=== PATIENT | male | born 1945 | race Native Hawaiian/Other Pacific Islander ===

== ENCOUNTER → 2017-03-16 | Outpatient (CLI) | payer MEDICARE, BC | LOC: LAB.WCP 06:57 | PROVIDERS: ATTEND Family Medicine | DX: R78.81 Bacteremia (principal) | CPT/HCPCS: 36415; 87040 ==

== ENCOUNTER 2017-06-04 06:59 | Outpatient (CLI) | payer MEDICARE, BC ==
[2017-06-04 19:42] LABS: BASOPHILS # (AUTO) 0.1 10^3/uL (0.0-0.1); BASOPHILS % (AUTO) 0.6 %; EOSINOPHILS # (AUTO) 0.3 10^3/uL (0.0-0.7); EOSINOPHILS % (AUTO) 3.7 %; HCT - HEMATOCRIT 38.2 % (42.0-52.0); HGB - HEMOGLOBIN 12.1 g/dL (14.0-18.0); LYMPHOCYTES # (AUTO) 1.4 10^3/uL (1.5-3.5); LYMPHOCYTES % (AUTO) 16.2 %; MEAN CORPUSCULAR HGB CONC 31.7 g/dL (32.0-36.0); MEAN CORPUSCULAR VOLUME 85.1 fL (80.0-94.0); MEAN PLATELET VOLUME 7.2 fL (7.4-11.4); MONOCYTES # (AUTO) 0.7 10^3/uL (0.0-1.0); MONOCYTES % (AUTO) 8.8 %; NEUTROPHILS # (AUTO) 5.9 10^3/uL (1.5-6.6); NEUTROPHILS % (AUTO) 70.7 %; RED BLOOD COUNT 4.49 10^6/uL (4.70-6.10); RED CELL DISTRIBUTION WIDTH 18.5 % (12.0-15.0); UNCORRECTED WHITE BLOOD COUNT 8.4 x10^3/uL; WHITE BLOOD COUNT 8.4 x10^3/uL (4.8-10.8)
[2017-06-04 20:15] LABS: BUN - BLOOD UREA NITROGEN 15 mg/dL (6-20); CALCIUM 8.9 mg/dL (8.5-10.3); CARBON DIOXIDE - CO2 27 mmol/L (21-32); CHLORIDE 101 mmol/L (101-111); CHOL/HDL RATIO 1.9 (<5.0); CHOLESTEROL 132 mg/dL; CREATININE 1.1 mg/dL (0.6-1.2); GFR - MDRD 66 (>89); GLUCOSE 100 mg/dL (70-100); HDL CHOLESTEROL 71 mg/dL; LDL/HDL RATIO 0.6 (<3.6); SODIUM 139 mmol/L (135-145); TOTAL PROTEIN 8.3 g/dL (6.7-8.2); TRIGLYCERIDES 93 mg/dL; VLDL CHOLESTEROL 19 mg/dL
== END 2017-06-04 07:00 | disposition home or self-care (01) ==
LOC: LAB.WCP 06:59
PROVIDERS: ATTEND Family Medicine
DX: I10 Essential (primary) hypertension (principal); R73.01 Impaired fasting glucose; E88.9 Metabolic disorder, unspecified; Z79.899 Other long term (current) drug therapy
CPT/HCPCS: 36415; 80053; 80061; 85025

== ENCOUNTER 2017-12-10 15:10 | Outpatient (CLI) | payer MEDICARE, BC | END 2017-12-10 15:11 | disposition short-term general hospital (02) | LOC: EMS 15:10 | PROVIDERS: ATTEND Surgery | DX: R55 Syncope and collapse (principal) | CPT/HCPCS: A0425; A0427; A0888 ==

== ENCOUNTER 2017-12-27 14:04 | Outpatient (CLI) | payer MEDICARE, BC ==
[2017-12-27 14:49] LABS: BASOPHILS # (AUTO) 0.1 10^3/uL (0.0-0.1); BASOPHILS % (AUTO) 0.8 %; EOSINOPHILS # (AUTO) 0.3 10^3/uL (0.0-0.7); EOSINOPHILS % (AUTO) 4.3 %; HGB - HEMOGLOBIN 11.7 g/dL (14.0-18.0); LYMPHOCYTES # (AUTO) 1.1 10^3/uL (1.5-3.5); LYMPHOCYTES % (AUTO) 16.5 %; MEAN CORPUSCULAR HEMOGLOBIN 28.1 pg (27.0-31.0); MEAN CORPUSCULAR HGB CONC 32.8 g/dL (32.0-36.0); MEAN CORPUSCULAR VOLUME 85.6 fL (80.0-94.0); MEAN PLATELET VOLUME 7.2 fL (7.4-11.4); MONOCYTES # (AUTO) 0.6 10^3/uL (0.0-1.0); NEUTROPHILS # (AUTO) 4.7 10^3/uL (1.5-6.6); NEUTROPHILS % (AUTO) 69.4 %; PLT - PLATELET COUNT 286 10^3/uL (130-450); RED BLOOD COUNT 4.18 10^6/uL (4.70-6.10); WHITE BLOOD COUNT 6.7 x10^3/uL (4.8-10.8)
[2017-12-27 15:01] LABS: ALBUMIN 3.7 g/dL (3.2-5.5); ALBUMIN/GLOBULIN RATIO 0.9 (1.0-2.2); BILIRUBIN,TOTAL 0.9 mg/dL (0.2-1.0); CALCIUM 8.6 mg/dL (8.5-10.3); CREATININE 1.3 mg/dL (0.6-1.2); TOTAL PROTEIN 7.8 g/dL (6.7-8.2)
== END 2017-12-27 14:05 | disposition home or self-care (01) ==
LOC: LAB 14:04
PROVIDERS: ATTEND Internal Medicine Gastroenterology
DX: Z01.818 Encounter for other preprocedural examination (principal); I50.9 Heart failure, unspecified; Z12.11 Encounter for screening for malignant neoplasm of colon
CPT/HCPCS: 36415; 80053; 85025; 93005

== ENCOUNTER 2018-01-05 08:00 | Outpatient (CLI) | payer MEDICARE, BC ==
[2018-01-05 18:56] LABS: PT - PROTHROMBIN TIME 21.8 secs (9.9-12.6)
== END 2018-01-05 08:01 | disposition home or self-care (01) ==
LOC: LAB.WCP 08:00
PROVIDERS: ATTEND Internal Medicine Gastroenterology
DX: Z12.11 Encounter for screening for malignant neoplasm of colon (principal)
CPT/HCPCS: 36415; 85610

== ENCOUNTER 2018-01-06 13:18 | Day surgery (SDC) | payer MEDICARE, BC ==
[2018-01-06] MEDS ORDERED: LACTATED RINGERS 1,000 ML IV ONE (14:03)
[2018-01-06] MEDS ORDERED: PROPOFOL 200 MG/20 ML VIAL IVP ONE (15:07)
[2018-01-06] MEDS ORDERED: LIDOCAINE-MPF 2% 5 ML VIAL IM ONE (15:07)
[2018-01-06 16:04] VITALS: BP 110/72
== END 2018-01-06 13:19 | disposition home or self-care (01) ==
LOC: SDS 13:18
PROVIDERS: ATTEND Internal Medicine Gastroenterology
PROC: 0DBN8ZX Excision of Sigmoid Colon, Via Natural or Artificial Opening Endoscopic, Diagnostic (ICD-10-PCS; 2018-01-06)
PROC: 0DBP8ZX Excision of Rectum, Via Natural or Artificial Opening Endoscopic, Diagnostic (ICD-10-PCS; 2018-01-06)
PROC: 0DBK8ZX Excision of Ascending Colon, Via Natural or Artificial Opening Endoscopic, Diagnostic (ICD-10-PCS; 2018-01-06)
PROC: 0DBM8ZX Excision of Descending Colon, Via Natural or Artificial Opening Endoscopic, Diagnostic (ICD-10-PCS; principal; 2018-01-06 14:30)
DX: Z12.11 Encounter for screening for malignant neoplasm of colon (principal); D12.2 Benign neoplasm of ascending colon; D12.5 Benign neoplasm of sigmoid colon; K62.1 Rectal polyp; K63.5 Polyp of colon; I11.0 Hypertensive heart disease with heart failure; I50.9 Heart failure, unspecified; Z95.2 Presence of prosthetic heart valve; Z79.01 Long term (current) use of anticoagulants; Z79.82 Long term (current) use of aspirin; Z87.891 Personal history of nicotine dependence
CPT/HCPCS: 45380; 45385; J7120

== ENCOUNTER 2018-01-13 18:48 | Outpatient (CLI) | payer MEDICARE, BC | END 2018-01-13 18:49 | disposition critical access hospital (66) | LOC: EMS 18:48 | PROVIDERS: ATTEND Surgery | DX: R53.1 Weakness (principal); K92.1 Melena; Z79.01 Long term (current) use of anticoagulants | CPT/HCPCS: A0425; A0427 ==

== ENCOUNTER 2018-01-13 19:05 | Inpatient (IN) | payer MEDICARE, BC ==
[2018-01-13] MEDS ORDERED: SODIUM CHLORIDE 0.9% 1,000 ML IV ONE (19:11)
--- NOTE | 2018-01-13 19:14 | ED Physician Documentation ---
PD HPI GI BLEED - Stated complaint Stated Complaint: SYNCOPE - History obtained from History obtained from: Patient, EMS - History of Present Illness Timing - onset: Today (This is a 72-year-old gentleman with atrial fibrillation on warfarin. 6 days ago he had a colonoscopy with several polypectomies. He did pause his Coumadin for a few days. Procedurally. Today he started having syncopal episodes and feeling weak especially when upright and had 2 syncopal episodes total with several episodes of dark blood and clots per rectum. He denies any abdominal pain. He was orthostatic for the paramedics although they could not complete the orthostatics due to symptomatology. He denies chest pain , trouble breathing, or dizziness when he is supine.) Review of Systems Ten Systems: 10 systems reviewed and negative Constitutional: denies: Fever, Chills Cardiac: denies: Chest pain / pressure, Palpitations Respiratory: denies: Dyspnea, Cough GI: denies: Abdominal Pain, Nausea, Vomiting, Constipation, Diarrhea PD PAST MEDICAL HISTORY - Past Medical History Past Medical History: Yes Cardiovascular: Atrial fibrillation - Present Medications Home Medications: Ambulatory Orders Medication Instructions Recorded Confirmed Acetaminophen/Diphenhydramine 2 each PO DAILY PM 12/29/17 01/06/18 [Tylenol Pm Ex-Strength Caplet] Aspirin 81 mg PO DAILY 12/29/17 01/06/18 Atorvastatin Calcium 80 mg PO DAILY 12/29/17 01/06/18 Docusate Sodium 100 mg PO BID 12/29/17 01/06/18 Escitalopram [Lexapro] 10 mg PO DAILY 12/29/17 01/06/18 Famotidine 20 mg PO BID 12/29/17 01/06/18 Ferrous Sulfate 324 mg PO TID 12/29/17 01/06/18 Furosemide [Lasix] 20 mg PO BID 12/29/17 01/06/18 Metoprolol Succinate 50 mg PO BID 12/29/17 01/06/18 Multivit-Min/Folic/Vit K/Lycop 1 each PO DAILY 12/29/17 01/06/18 [Men's Multivitamin Caplet] Potassium Chloride 20 meq PO DAILY 12/29/17 01/06/18 Ubidecarenone/Vit E Acetate [Co 1 each PO DAILY 12/29/17 01/06/18 Q-10 100 mg Softgel] Warfarin [Coumadin] 0.5 tab PO .QMON-SAT 12/29/17 01/06/18 Warfarin [Coumadin] 2.5 mg PO .QSUNDAY 12/29/17 01/06/18 oxyCODONE [Roxicodone] 5 mg PO TID 12/29/17 01/06/18 - Allergies Allergies/Adverse Reactions: Allergies Allergy/AdvReac Type Severity Reaction Status Date / Time cyclobenzaprine Allergy Rash Verified 01/06/18 13:47 [From Flexeril] - Living Situation Living Situation: reports: With spouse/s.o. - Social History Does the pt have substance abuse?: No - Family History Family history: reports: Non contributory PD ED PE NORMAL - Vitals Vital signs reviewed: Yes - General General: Alert and oriented X 3, No acute distress - HEENT HEENT: PERRL, EOMI - Neck Neck: Supple, no meningeal sign, No bony TTP - Cardiac Cardiac: Other (Irregularly irregular without murmur) - Respiratory Respiratory: No respiratory distress, Clear bilaterally - Abdomen Abdomen: Normal bowel sounds, Soft, Non tender - Derm Derm: Normal color, Warm and dry - Extremities Extremities: No edema, No calf tenderness / cord - Neuro Neuro: Alert and oriented X 3, Normal speech - Psych Psych: Normal mood, Normal affect Results - Vitals Vitals: Vital Signs - 24 hr 01/13/18 01/13/18 19:08 19:51 Temperature 36.4 C L Heart Rate 81 78 Respiratory 18 11 L Rate Blood Pressure 97/57 L 108/85 H O2 Saturation 97 97 Oxygen O2 Source Room air - Labs Labs: Laboratory Tests 01/13/18 01/13/18 01/13/18 19:17 19:17 19:17 WBC 10.4 RBC 3.54 L Hgb 9.8 L Hct 30.8 L MCV 87.1 MCH 27.8 MCHC 31.9 L RDW 16.4 H Plt Count 221 MPV 6.7 L Neut # 8.6 H Lymph # 1.0 L [place] # 0.7 Eos # 0.0 Baso # 0.0 Absolute Nucleated RBC 0.00 Nucleated RBC % 0.0 PT 18.7 H INR 1.7 H Sodium 137 Potassium 4.4 Chloride 104 Carbon Dioxide 25 Anion Gap 8.0 BUN 29 H Creatinine 1.6 H Estimated GFR (MDRD) 43 L Glucose 119 H Calcium 8.1 L Total Bilirubin 0.8 AST 51 H ALT 45 Alkaline Phosphatase 213 H Total Protein 6.9 Albumin 3.5 Globulin 3.4 Albumin/Globulin Ratio 1.0 Lipase 32 PD MEDICAL DECISION MAKING - ED course ED course: 72-year-old gentleman on warfarin for atrial fibrillation presents 6 days out from a colonoscopy with multiple polypectomies with lower GI bleeding and 2 episodes of syncope and orthostatic in the field with a 2 point drop in his H&H since the last value about 2 weeks ago. I spoke with his surgeon, Dr. Elias Elaine at 7:58 PM who will follow along and recommends observation under the hospitalist service for serial H&H. I spoke with Dr. Leon for observation at 8:05 PM. Departure - Departure Disposition: ED Place in Observation Clinical Impression: Lower GI bleed, Syncope and collapse Atrial fibrillation Qualifiers: Atrial fibrillation type: chronic Qualified Code(s): I48.2 - Chronic atrial fibrillation Condition: Serious
[2018-01-13 19:30] LABS: BASOPHILS % (AUTO) 0.5 %; EOSINOPHILS % (AUTO) 0.4 %; HGB - HEMOGLOBIN 9.8 g/dL (14.0-18.0); LYMPHOCYTES % (AUTO) 9.6 %; MEAN CORPUSCULAR HEMOGLOBIN 27.8 pg (27.0-31.0); MEAN CORPUSCULAR HGB CONC 31.9 g/dL (32.0-36.0); MEAN CORPUSCULAR VOLUME 87.1 fL (80.0-94.0); MEAN PLATELET VOLUME 6.7 fL (7.4-11.4); MONOCYTES # (AUTO) 0.7 10^3/uL (0.0-1.0); NEUTROPHILS # (AUTO) 8.6 10^3/uL (1.5-6.6); NEUTROPHILS % (AUTO) 82.5 %; PLT - PLATELET COUNT 221 10^3/uL (130-450); RED BLOOD COUNT 3.54 10^6/uL (4.70-6.10); RED CELL DISTRIBUTION WIDTH 16.4 % (12.0-15.0); WHITE BLOOD COUNT 10.4 x10^3/uL (4.8-10.8)
[2018-01-13 19:36] LABS: INR 1.7 (0.8-1.2); PT - PROTHROMBIN TIME 18.7 secs (9.9-12.6)
[2018-01-13 19:42] LABS: ALBUMIN 3.5 g/dL (3.2-5.5); BILIRUBIN,TOTAL 0.8 mg/dL (0.2-1.0); CALCIUM 8.1 mg/dL (8.5-10.3); CREATININE 1.6 mg/dL (0.6-1.2); TOTAL PROTEIN 6.9 g/dL (6.7-8.2)
[2018-01-13] MEDS ORDERED: oxyCODONE 5 MG TABLET PO STA (20:06)
[2018-01-13] MEDS ORDERED: PROMETHAZINE 25 MG/1 ML VIAL IM PRN (20:17)
[2018-01-13] MEDS ORDERED: PROCHLORPERAZINE 10 MG/2 ML VIAL IVP PRN (20:17)
[2018-01-13] MEDS ORDERED: ONDANSETRON 4 MG/2 ML VIAL IVP PRN (20:17)
[2018-01-13] MEDS ORDERED: ACETAMINOPHEN 325 MG TABLET PO PRN (20:17)
[2018-01-13] MEDS ORDERED: SODIUM CHLORIDE 0.9% 500 ML IV ONE ×2 (20:17→22:16)
[2018-01-13] MEDS ORDERED: oxyCODONE 5 MG TABLET PO PRN (20:17)
[2018-01-13] MEDS: SODIUM CHLORIDE 0.9% 1,000 ML IV SCH (22:15)
[2018-01-13] MEDS: METOPROLOL SUCCINATE 50 MG TABLET PO SCH (22:15)
--- NOTE | 2018-01-13 22:16 | HISTORY & PHYSICAL EXAMINATION ---
Chief Complaint - Chief Complaint Chief Complaint: Bloody stools History of Present Illness - Admitted From Admitted From:: Emergency Department - History Obtained From Records Reviewed: Yes History obtained from: Patient Exam Limitations: NOne - History of Present Illness HPI Comment/Other: Patient is a 72-year-old gentleman with a past medical history significant for atrial fibrillation on Coumadin, hypertension, mitral valve replacement, borderline diabetes, gout, obesity, depression, chronic back pain status post spinal surgery, mild cognitive impairment, coronary disease status post stent in 2014, and chronic CHF who presented to the emergency department with a chief complaint of bloody stools. The patient states that he underwent a colonoscopy 7 days ago. From our records it appears the patient had sessile polyp ranging between 5-9 mm that was found in the descending colon which was removed by polypectomy, he also had a pedunculated polyp measuring 2 cm in the ascending colon which was also removed by polypectomy, he had a sessile polyps ranging between 3-7 mm in the sigmoid colon which was removed by polypectomy and he had multiple sessile polyps ranging between 5 and 9 mm in the rectum which were removed by polypectomy as well. The pathology on the polyps that were sent for biopsy showed no evidence of malignancy. The patient states that for the procedure he stopped his Coumadin a few days before and this was resumed a day after the procedure. He states that he was in his normal state of health after the procedure and was not having any issues to the week. He states that when he got up this morning he felt very dizzy and fell to the floor. He states he did not lose consciousness but after he fell on the floor he states that he had sustained his pajamas with blood that had come from his rectum. He states that after this he got up and went to the toilet and filled the toilet with bloody stools. He states the stools are bloody but the blood is dark. He states that after this large bloody bowel movement he had no further bloody bowel movements through the day. He does state however he was getting extremely dizzy anytime he would stand. He states that his was out shopping and when she called he did not want to worry her so he told her he was fine. When she did return from shopping he told her what had happened and she immediately called 911. On arrival of EMS the patient was found to be hypotensive and had positive orthostatics. The patient was brought into the emergency department. Patient denies any headaches, blurred vision, runny nose, sore throat, nasal congestion, difficulty swallowing, fevers, chills, chest pain, palpitations, shortness of air, orthopnea, PND, increased lower extremity swelling, abdominal pain, nausea, vomiting, diarrhea, constipation, urinary urgency, urinary frequency, dysuria, joint pain, joint swelling, muscle aches, neck stiffness, recent unintentional weight loss, changes in appetite, skin rashes, hair loss, polydipsia, polyuria, night sweats or any focal neurologic deficits. On presentation to the emergency department the patient was afebrile and was mildly hypotensive with a blood pressure of 97/57 but was not tachycardic and not in any respiratory distress. The patient's lab work revealed that the patient had a hemoglobin of 9.8 which had decreased from 11.7 just 2 weeks earlier. The patient's stool guaiac was positive and his INR was 1.7 on presentation. The patient otherwise had a mildly elevated creatinine of 1.6 from a baseline of 1.1-1.3. The patient's AST and alk phos are slightly elevated but this was near his baseline. The patient did not undergo any imaging in the emergency department physician spoke with the general surgeon quality control systems manager. The general surgeon recommended that the patient be placed in observation and have serial H&H and be monitored for any further bleeding and that he would see the patient in the morning. History - Past Medical History Cardiovascular: reports: Congestive heart failure, Hypertension, High cholesterol, Coronary artery disease, Atrial fibrillation, Valve disorder ( Mitral valve replacement), Other (Obesity) Neuro: reports: Other (Mild cognitive impairment) Endocrine/Autoimmune: reports: Type 2 diabetes (Borderline) Psych: reports: Depression - Past Surgical History General: reports: Cholecystectomy, Colonoscopy - Family & Social History Family History: Mother: , Alcoholism, Father: , Renal Disease/ Failure Living arrangement: At home Living Situation: With spouse/s.o. Social History Notes: Patient lives in [place] with his . They have been for 42 years and had 5 kids together. 3 girls and 2 boys one of the patient's sons is . [place] 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 He quit smoking about 42 years ago and smoked about a pack a day for 10 years. He was previously a heavy drinker but has quit and does not currently drink alcohol. He denies any illicit drug use. - POLST Patient has POLST: No POLST Status: Full Code Meds/Allgy - Home Medications Home Medications: Ambulatory Orders Medication Instructions Recorded Confirmed Acetaminophen/Diphenhydramine 2 each PO DAILY PM 12/29/17 01/06/18 [Tylenol Pm Ex-Strength Caplet] Aspirin 81 mg PO DAILY 12/29/17 01/06/18 Atorvastatin Calcium 80 mg PO DAILY 12/29/17 01/06/18 Docusate Sodium 100 mg PO BID 12/29/17 01/06/18 Escitalopram [Lexapro] 10 mg PO DAILY 12/29/17 01/06/18 Famotidine 20 mg PO BID 12/29/17 01/06/18 Ferrous Sulfate 324 mg PO TID 12/29/17 01/06/18 Furosemide [Lasix] 20 mg PO BID 12/29/17 01/06/18 Metoprolol Succinate 50 mg PO BID 12/29/17 01/06/18 Multivit-Min/Folic/Vit K/Lycop 1 each PO DAILY 12/29/17 01/06/18 [Men's Multivitamin Caplet] Potassium Chloride 20 meq PO DAILY 12/29/17 01/06/18 Ubidecarenone/Vit E Acetate [Co 1 each PO DAILY 12/29/17 01/06/18 Q-10 100 mg Softgel] Warfarin [Coumadin] 0.5 tab PO .QMON-SAT 12/29/17 01/06/18 Warfarin [Coumadin] 2.5 mg PO .QSUNDAY 12/29/17 01/06/18 oxyCODONE [Roxicodone] 5 mg PO TID 12/29/17 01/06/18 - Allergies Allergies/Adverse Reactions: Allergies Allergy/AdvReac Type Severity Reaction Status Date / Time cyclobenzaprine Allergy Rash Verified 01/06/18 13:47 [From Flexeril] Review of Systems - Other Findings Other Findings: A comprehensive review of systems was performed the pertinent positives and negatives are stated above in the HPI and the remainder of the review of systems is negative. Exam - Vital Signs Reviewed Vital Signs: Yes Vital Signs: Vital Signs x48h Temp Pulse Pulse Resp BP BP Pulse Ox 01/13/18 21:20 36.9 C 80 16 113/65 98 01/13/18 20:30 69 12 109/69 98 - Physical Exam General Appearance: positive: No acute distress, Alert, Other (Obese) Eyes Bilateral: positive: Normal inspection, PERRL, EOMI, No lid inflammation, No scleral icterus, Other (Mild conjunctival pallor) ENT: positive: ENT inspection nml, Pharynx nml, Dry mucous membranes. negative : Purulent nasal drainage, Pharyngeal erythema, Oral lesions Neck: positive: Nml inspection, Thyroid nml, No JVD, Trachea midline. negative : Lymphadenopathy (R), Lymphadenopathy (L), Carotid bruit, Tracheal deviation Respiratory: positive: Chest non-tender, No respiratory distress, Breath sounds nml. negative: Wheezes, Rales, Rhonchi Cardiovascular: positive: No murmur, No gallop, Irregularly irregular Peripheral Pulses: positive: 2+ Abdomen: positive: Non-tender, No organomegaly, Nml bowel sounds, No distention. negative: Guarding, Rebound, Hepatomegaly Back: positive: Nml inspection. negative: CVA tenderness (R), CVA tenderness (L ) Skin: positive: No rash, Warm, Dry, Pallor. negative: Cyanosis Extremities: positive: Non-tender, Full ROM, Nml appearance, No pedal edema Neurologic/Psychiatric: positive: Oriented x3, CN's nml (2-12), Motor nml, Sensation nml, Mood/affect nml Conclusion/Plan - Problem List (1) Lower GI bleed Conclusion/Plan: Patient presents to the emergency department with bloody stools. Patient had a episode of dizziness and fell then had several episodes of blood in his stools. The patient continued to be dizzy throughout the day and was hypotensive on arrival of EMS. The patient's hemoglobin dropped from 11.72 weeks ago down to 9.8 on presentation. The patient did have a recent colonoscopy with multiple polypectomies one week ago. He had his Coumadin held but that was restarted after the procedure. It is likely the patient is bleeding from the polypectomy sites secondary to his Coumadin. Plan: We will monitor the patient's H&H every 6 hours We will monitor for any further bloody bowel movements We will hold the patient's Coumadin And aspirin Patient will be given IV fluids given his low blood pressure Patient will be given packed RBCs if hemoglobin falls below 7 Surgery will be consulted We will start the patient on IV Protonix until we are sure this is just a lower GI bleed. (2) Atrial fibrillation Conclusion/Plan: Patient has chronic atrial fibrillation. The patient is on Coumadin. The patient's chads 2 score is 3. The patient is also on metoprolol for rate control. The patient's rate appears to be controlled on presentation. Given the patient's ongoing GI bleed his Coumadin will be held. We will need to continue to monitor for any further bleeding and will need to hold off on restarting Coumadin for a few days. Qualifiers: Atrial fibrillation type: chronic Qualified Code(s): I48.2 - Chronic atrial fibrillation (3) LESLEY (acute kidney injury) Conclusion/Plan: The patient's creatinine is elevated at 1.6 on presentation his normal baseline is between 1.1 and 1.3. Likely the patient has prerenal azotemia given that he has had acute blood loss which likely led to prerenal acute kidney injury. Patient will be given IV fluids and will monitor the patient's creatinine If creatinine does not improve we will consider an retroperitoneal ultrasound Avoid nephrotoxic agents. (4) Hypertension Conclusion/Plan: Patient has history of hypertension but currently on presentation the patient is borderline hypotensive. We will hold the patient's antihypertensive medications until blood pressure is improved. In the setting of this GI bleed we do not want to cause any further hypotension. Qualifiers: Hypertension type: essential hypertension Qualified Code(s): I10 - Essential (primary) hypertension (5) Depression Conclusion/Plan: Patient has history of depression and does take Lexapro which will be continued while he is hospitalized. The patient is otherwise stable and appears to have a normal mood. Qualifiers: Depression Type: unspecified Qualified Code(s): F32.9 - Major depressive disorder, single episode, unspecified (6) Hyperlipidemia Conclusion/Plan: Patient does have a history of hyperlipidemia and does take a statin at home we will continue him on statin while he is hospitalized. Qualifiers: Hyperlipidemia type: unspecified Qualified Code(s): E78.5 - Hyperlipidemia , unspecified (7) Chronic pain Conclusion/Plan: The patient does have a history of chronic back pain and does use oxycodone at home 3 times a day. While he is hospitalized here we will place him on oxycodone as needed. Currently the pain appears to be controlled. Qualifiers: Chronic pain type: chronic pain syndrome Qualified Code(s): G89.4 - Chronic pain syndrome - Lab Results Lab results reviewed: Yes Fish Bones: 01/14/18 00:40 01/13/18 19:17 Other Lab Results: Laboratory Results WBC 9.0 x10^3/uL (4.8-10.8) 01/14/18 00:40 RBC 3.28 10^6/uL (4.70-6.10) L 01/14/18 00:40 Hgb 9.2 g/dL (14.0-18.0) L 01/14/18 00:40 Hct 28.5 % (42.0-52.0) L 01/14/18 00:40 MCV 86.9 fL (80.0-94.0) 01/14/18 00:40 MCH 28.2 pg (27.0-31.0) 01/14/18 00:40 MCHC 32.5 g/dL (32.0-36.0) 01/14/18 00:40 RDW 16.3 % (12.0-15.0) H 01/14/18 00:40 Plt Count 202 10^3/uL (130-450) 01/14/18 00:40 MPV 6.9 fL (7.4-11.4) L 01/14/18 00:40 Neut # 6.5 10^3/uL (1.5-6.6) 01/14/18 00:40 Lymph # 1.5 10^3/uL (1.5-3.5) 01/14/18 00:40 [place] # 0.7 10^3/uL (0.0-1.0) 01/14/18 00:40 Eos # 0.2 10^3/uL (0.0-0.7) 01/14/18 00:40 Baso # 0.1 10^3/uL (0.0-0.1) 01/14/18 00:40 Absolute Nucleated RBC 0.00 x10^3/uL 01/14/18 00:40 Nucleated RBC % 0.0 /100WBC 01/14/18 00:40 PT 18.7 secs (9.9-12.6) H 01/13/18 19:17 INR 1.7 (0.8-1.2) H 01/13/18 19:17 Sodium 137 mmol/L (135-145) 01/13/18 19:17 Potassium 4.4 mmol/L (3.5-5.0) 01/13/18 19:17 Chloride 104 mmol/L (101-111) 01/13/18 19:17 Carbon Dioxide 25 mmol/L (21-32) 01/13/18 19:17 Anion Gap 8.0 (6-13) 01/13/18 19:17 BUN 29 mg/dL (6-20) H 01/13/18 19:17 Creatinine 1.6 mg/dL (0.6-1.2) H 01/13/18 19:17 Estimated GFR (MDRD) 43 (>89) L 01/13/18 19:17 Glucose 119 mg/dL (70-100) H 01/13/18 19:17 Calcium 8.1 mg/dL (8.5-10.3) L 01/13/18 19:17 Total Bilirubin 0.8 mg/dL (0.2-1.0) 01/13/18 19:17 AST 51 IU/L (10-42) H 01/13/18 19:17 ALT 45 IU/L (10-60) 01/13/18 19:17 Alkaline Phosphatase 213 IU/L (42-121) H 01/13/18 19:17 Total Protein 6.9 g/dL (6.7-8.2) 01/13/18 19:17 Albumin 3.5 g/dL (3.2-5.5) 01/13/18 19:17 Globulin 3.4 g/dL (2.1-4.2) 01/13/18 19:17 Albumin/Globulin Ratio 1.0 (1.0-2.2) 01/13/18 19:17 Lipase 32 U/L (22-51) 01/13/18 19:17 Blood Type O POSITIVE 01/13/18 19:17 Antibody Screen NEGATIVE 01/13/18 19:17 Core Measures - Anticipated LOS I expect patient to be DC'd or transferred within 96 hours.: Yes - DVT/VTE - Prophylaxis VTE/DVT Device ordered at admit?: Yes
[2018-01-13] MEDS: PANTOPRAZOLE 40 MG VIAL IVP SCH (22:34)
[2018-01-13] MEDS: FERROUS SULFATE 325 MG TABLET PO SCH (22:34)
[2018-01-13] MEDS: SODIUM CHLORIDE FLUSH 0.9% 10 ML SYRINGE IVP PRN (22:35)
[2018-01-13] MEDS: oxyCODONE 5 MG TABLET PO PRN (22:37)
[2018-01-14 00:55] LABS: BASOPHILS # (AUTO) 0.1 10^3/uL (0.0-0.1); BASOPHILS % (AUTO) 0.6 %; EOSINOPHILS # (AUTO) 0.2 10^3/uL (0.0-0.7); EOSINOPHILS % (AUTO) 1.8 %; HGB - HEMOGLOBIN 9.2 g/dL (14.0-18.0); LYMPHOCYTES # (AUTO) 1.5 10^3/uL (1.5-3.5); LYMPHOCYTES % (AUTO) 16.8 %; MEAN CORPUSCULAR HEMOGLOBIN 28.2 pg (27.0-31.0); MEAN CORPUSCULAR HGB CONC 32.5 g/dL (32.0-36.0); MEAN CORPUSCULAR VOLUME 86.9 fL (80.0-94.0); MEAN PLATELET VOLUME 6.9 fL (7.4-11.4); MONOCYTES # (AUTO) 0.7 10^3/uL (0.0-1.0); MONOCYTES % (AUTO) 8.2 %; NEUTROPHILS # (AUTO) 6.5 10^3/uL (1.5-6.6); NEUTROPHILS % (AUTO) 72.6 %; PLT - PLATELET COUNT 202 10^3/uL (130-450); RED BLOOD COUNT 3.28 10^6/uL (4.70-6.10); RED CELL DISTRIBUTION WIDTH 16.3 % (12.0-15.0)
[2018-01-14] MEDS: oxyCODONE 5 MG TABLET PO PRN ×5 (02:28→19:57)
[2018-01-14] MEDS: SODIUM CHLORIDE 0.9% 1,000 ML IV SCH (02:33)
[2018-01-14] MEDS: SODIUM CHLORIDE FLUSH 0.9% 10 ML SYRINGE IVP SCH ×3 (06:11→19:56)
[2018-01-14] MEDS: FERROUS SULFATE 325 MG TABLET PO SCH ×3 (06:12→22:09)
[2018-01-14 06:25] LABS: BASOPHILS % (AUTO) 0.5 %; EOSINOPHILS # (AUTO) 0.3 10^3/uL (0.0-0.7); EOSINOPHILS % (AUTO) 3.6 %; HGB - HEMOGLOBIN 8.7 g/dL (14.0-18.0); LYMPHOCYTES # (AUTO) 1.6 10^3/uL (1.5-3.5); LYMPHOCYTES % (AUTO) 22.1 %; MEAN CORPUSCULAR HEMOGLOBIN 28.1 pg (27.0-31.0); MEAN CORPUSCULAR HGB CONC 32.4 g/dL (32.0-36.0); MEAN CORPUSCULAR VOLUME 86.7 fL (80.0-94.0); MEAN PLATELET VOLUME 7.2 fL (7.4-11.4); MONOCYTES # (AUTO) 0.7 10^3/uL (0.0-1.0); MONOCYTES % (AUTO) 8.9 %; NEUTROPHILS # (AUTO) 4.8 10^3/uL (1.5-6.6); NEUTROPHILS % (AUTO) 64.9 %; PLT - PLATELET COUNT 190 10^3/uL (130-450); RED BLOOD COUNT 3.09 10^6/uL (4.70-6.10); WHITE BLOOD COUNT 7.3 x10^3/uL (4.8-10.8)
[2018-01-14 06:32] LABS: INR 1.6 (0.8-1.2); PT - PROTHROMBIN TIME 17.7 secs (9.9-12.6)
[2018-01-14 06:45] LABS: ALBUMIN 2.9 g/dL (3.2-5.5); ALBUMIN/GLOBULIN RATIO 0.9 (1.0-2.2); BILIRUBIN,TOTAL 1.1 mg/dL (0.2-1.0); CREATININE 1.1 mg/dL (0.6-1.2); TOTAL PROTEIN 6.1 g/dL (6.7-8.2)
[2018-01-14] MEDS: ATORVASTATIN 40 MG TABLET PO SCH (09:29)
[2018-01-14] MEDS: ESCITALOPRAM 10 MG TABLET PO SCH (09:29)
[2018-01-14] MEDS: PANTOPRAZOLE 40 MG VIAL IVP SCH ×2 (09:29→22:09)
[2018-01-14] MEDS: POLYETHYLENE GLYCOL 3350 17 GM PACKET PO SCH (09:34)
[2018-01-14] MEDS: METOPROLOL SUCCINATE 50 MG TABLET PO SCH ×2 (09:34→22:09)
--- NOTE | 2018-01-14 10:52 | CONSULTATION NOTE ---
History of Present Illness - History of Present Illness HPI Comment/Other: This document was created in error. See separate full consultation note by Dr. Jenise Elaine History - Past Medical History Cardiovascular: reports: Congestive heart failure, Hypertension, High cholesterol, Coronary artery disease, Atrial fibrillation, Valve disorder ( Mitral valve replacement), Other (Obesity) Neuro: reports: Other (Mild cognitive impairment) Endocrine/Autoimmune: reports: Type 2 diabetes (Borderline) Psych: reports: Depression - Past Surgical History General: reports: Cholecystectomy, Colonoscopy - Family & Social History Family History: Mother: , Alcoholism, Father: , Renal Disease/ Failure Living arrangement: At home Living Situation: With spouse/s.o. Social History Notes: Patient lives in [place] with his . They have been for 42 years and had 5 kids together. 3 girls and 2 boys one of the patient's sons is . The patient is originally from [place] and moved would [facility] about a year ago with his whose parents live here on the [place]. 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 He quit smoking about 42 years ago and smoked about a pack a day for 10 years. He was previously a heavy drinker but has quit and does not currently drink alcohol. He denies any illicit drug use. - POLST Patient has POLST: No POLST Status: Full Code Meds/Allgy - Home Medications Home Medications: Ambulatory Orders Medication Instructions Recorded Confirmed Acetaminophen/Diphenhydramine 2 each PO DAILY PM 12/29/17 01/14/18 [Tylenol Pm Ex-Strength Caplet] Atorvastatin Calcium 80 mg PO DAILY 12/29/17 01/14/18 Docusate Sodium 100 mg PO BID 12/29/17 01/14/18 Escitalopram [Lexapro] 10 mg PO DAILY 12/29/17 01/14/18 Famotidine 20 mg PO BID 12/29/17 01/14/18 Furosemide [Lasix] 10 mg PO BID 12/29/17 01/14/18 Metoprolol Succinate 25 mg PO DAILY 12/29/17 01/14/18 Multivit-Min/Folic/Vit K/Lycop 1 each PO DAILY 12/29/17 01/14/18 [Men's Multivitamin Caplet] Potassium Chloride 10 meq PO BID 12/29/17 01/14/18 Ubidecarenone/Vit E Acetate [Co 1 each PO DAILY 12/29/17 01/14/18 Q-10 100 mg Softgel] Warfarin [Coumadin] 0.5 tab PO .QMON-SAT 12/29/17 01/14/18 Warfarin [Coumadin] 2.5 mg PO .QSUNDAY 12/29/17 01/14/18 oxyCODONE [Roxicodone] 5 mg PO TID MDD 15 mg 12/29/17 01/14/18 Colchicine 0.6 mg PO DAILY PRN 01/14/18 01/14/18 Ferrous Gluconate 324 mg PO TID 01/14/18 01/14/18 Metoprolol Succinate 50 mg PO QPM 01/14/18 01/14/18 Omeprazole 40 mg PO DAILY #10 capsule. 01/16/18 - Allergies Allergies/Adverse Reactions: Allergies Allergy/AdvReac Type Severity Reaction Status Date / Time hydrocodone Allergy Intermediate Hives Verified 01/14/18 22:05 cyclobenzaprine Allergy Mild Rash Verified 01/14/18 22:05 [From Flexeril] Exam - Vital Signs Vital Signs: Vital Signs x48h Temp Pulse Resp BP Pulse Ox 01/14/18 07:36 36.8 C 76 16 104/70 92 Conclusion/Plan - Lab Results Lab results reviewed: Yes Fish Bones: 01/16/18 05:05 01/16/18 05:05
--- NOTE | 2018-01-14 10:58 | CONSULTATION NOTE ---
Referring Provider Name of Referring Provider:: Dr. Leon Consult Date: 01/14/18 Chief Complaint - Chief Complaint Chief Complaint: Rectal bleeding and syncope History of Present Illness - Admitted From Admitted From:: ER - History Obtained From Records Reviewed: yes History obtained from: pt and records Exam Limitations: pt with memory dysfunction due to mild dementia - History of Present Illness HPI Comment/Other: 72 yo male who developed an episode of painless BRBPR associated with dizziness and syncope yesterday morning, with no further bleeding but persistent dizziness for which he presented to the ER yesterday evening and was admitted. He is 8 days s/p colonoscopy with multiple polypectomies, including hot snare polypectomy of a 2 cm pedunculated polyp in the ascending colon. No significant bleeding was noted at the time of the procedure; no other lesions were noted, including no evidence of diverticulosis or angiodysplasia. Pt is on warfarin therapy for mechanical mitral valve as well as atrial fibrillation and his medication was not stopped for the procedure. His INR last night was 1.7. He has had no abdominal pain, N/V, or recurrent bleeding per rectum since admission. His vital signs have remained stable since admission. He has a negative FH GI tumors. This was his first colonoscopy and performed for screening. History - Past Medical History Cardiovascular: reports: Congestive heart failure, Hypertension, High cholesterol, Coronary artery disease, Atrial fibrillation, Valve disorder ( Mechanical Mitral valve replacement in 2016), Other (Obesity) Neuro: reports: Dementia, Other (Mild cognitive impairment) Endocrine/Autoimmune: reports: Type 2 diabetes (Borderline) GI: reports: Colon polyps (multiple adenomas on colonoscopy 12/2017) Psych: reports: Depression - Past Surgical History General: reports: Cholecystectomy, Colonoscopy Cardiovascular: reports: CABG (x 1 2014), Valve replacement (mechanical mitral valve 2016) - Family & Social History Family History: Mother: , Alcoholism, Father: , Renal Disease/ Failure Living arrangement: At home Living Situation: With spouse/s.o. Social History Notes: Patient lives in [place] with his . They have been for 42 years and had 5 kids together. 3 girls and 2 boys one of the patient's sons is . The patient is originally from [place] and moved would [facility] about a year ago with his whose parents live here on the [place]. 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 He quit smoking about 42 years ago and smoked about a pack a day for 10 years. He was previously a heavy drinker but has quit and does not currently drink alcohol. He denies any illicit drug use. - Substance History Use: Uses substance without health or social issues: NONE Abuse: Recurrent use of substance despite neg consequences: NONE Dependence: Experiences withdrawal or developed tolerances: NONE - POLST Patient has POLST: No POLST Status: Full Code Meds/Allgy - Home Medications Home Medications: Ambulatory Orders Medication Instructions Recorded Confirmed Acetaminophen/Diphenhydramine 2 each PO DAILY PM 12/29/17 01/14/18 [Tylenol Pm Ex-Strength Caplet] Aspirin 81 mg PO DAILY 12/29/17 01/14/18 Atorvastatin Calcium 80 mg PO DAILY 12/29/17 01/14/18 Docusate Sodium 100 mg PO BID 12/29/17 01/14/18 Escitalopram [Lexapro] 10 mg PO DAILY 12/29/17 01/14/18 Famotidine 20 mg PO BID 12/29/17 01/14/18 Furosemide [Lasix] 10 mg PO BID 12/29/17 01/14/18 Metoprolol Succinate 25 mg PO DAILY 12/29/17 01/14/18 Multivit-Min/Folic/Vit K/Lycop 1 each PO DAILY 12/29/17 01/14/18 [Men's Multivitamin Caplet] Potassium Chloride 10 meq PO BID 12/29/17 01/14/18 Ubidecarenone/Vit E Acetate [Co 1 each PO DAILY 12/29/17 01/14/18 Q-10 100 mg Softgel] Warfarin [Coumadin] 0.5 tab PO .QMON-SAT 12/29/17 01/14/18 Warfarin [Coumadin] 2.5 mg PO .QSUNDAY 12/29/17 01/14/18 oxyCODONE [Roxicodone] 5 mg PO TID MDD 15 mg 12/29/17 01/14/18 Colchicine 0.6 mg PO DAILY PRN 01/14/18 01/14/18 Ferrous Gluconate 324 mg PO TID 01/14/18 01/14/18 Metoprolol Succinate 50 mg PO QPM 01/14/18 01/14/18 - Allergies Allergies/Adverse Reactions: Allergies Allergy/AdvReac Type Severity Reaction Status Date / Time cyclobenzaprine Allergy Rash Verified 01/06/18 13:47 [From Flexeril] Review of Systems - Cardiovascular Cariovascular: reports: Lightheadedness (yesterday), Syncope (yesterday morning) - Gastrointestinal Gastrointestinal: reports: Rectal bleeding, Bloody stools. denies: Abdominal pain, Abdominal distention, Constipation, Diarrhea, Black stools, Nausea, Vomiting, Reflux/heartburn, Bloating - All Other Systems All Other Systems: reports: Other (memory dysfunction limits accuracy of ROS) Exam - Vital Signs Reviewed Vital Signs: Yes Vital Signs: Vital Signs x48h Temp Pulse Resp BP Pulse Ox 01/14/18 07:36 36.8 C 76 16 104/70 92 - Physical Exam General Appearance: positive: No acute distress, Alert Eyes Bilateral: positive: No scleral icterus ENT: positive: ENT inspection nml, Pharynx nml, No signs of dehydration Neck: positive: No JVD. negative: Lymphadenopathy (R), Lymphadenopathy (L) Respiratory: positive: Chest non-tender, No respiratory distress, Wheezes ( bilateral mild expiratory wheezes posteriorly) Cardiovascular: positive: No murmur, No gallop, Irregularly irregular Abdomen: positive: Non-tender, No organomegaly, Nml bowel sounds, No distention. negative: Hepatomegaly, Splenomegaly, Mass Extremities: positive: Nml appearance, No pedal edema. negative: Calf tenderness Conclusion/Plan - Diagnosis Diagnosis: Lower gi bleeding, likely related to prior polypectomies and anticoagulation status. Currently he appears stable with no evidence of further bleeding. 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 - Lab Results Lab results reviewed: Yes Fish Bones: 01/14/18 05:50 01/14/18 05:50
[2018-01-14 12:07] LABS: BASOPHILS # (AUTO) 0.1 10^3/uL (0.0-0.1); BASOPHILS % (AUTO) 0.7 %; EOSINOPHILS # (AUTO) 0.4 10^3/uL (0.0-0.7); EOSINOPHILS % (AUTO) 5.3 %; HGB - HEMOGLOBIN 9.5 g/dL (14.0-18.0); LYMPHOCYTES # (AUTO) 1.3 10^3/uL (1.5-3.5); LYMPHOCYTES % (AUTO) 18.2 %; MEAN CORPUSCULAR HEMOGLOBIN 28.5 pg (27.0-31.0); MEAN CORPUSCULAR HGB CONC 32.8 g/dL (32.0-36.0); MONOCYTES # (AUTO) 0.7 10^3/uL (0.0-1.0); MONOCYTES % (AUTO) 9.4 %; NEUTROPHILS # (AUTO) 4.8 10^3/uL (1.5-6.6); NEUTROPHILS % (AUTO) 66.4 %; PLT - PLATELET COUNT 191 10^3/uL (130-450); RED BLOOD COUNT 3.32 10^6/uL (4.70-6.10); RED CELL DISTRIBUTION WIDTH 16.5 % (12.0-15.0); WHITE BLOOD COUNT 7.3 x10^3/uL (4.8-10.8)
[2018-01-14 14:12] LABS: HGB - HEMOGLOBIN 8.6 g/dL (14.0-18.0)
--- NOTE | 2018-01-14 15:17 | PROVIDER PROGRESS NOTE ---
Subjective - Prog Note Date Prog Note Date: 01/14/18 - Subjective Pt reports feeling: Improved Subjective: pt state he did not have bowel movement today yet. he did not see he has rectal bleed. he feel hungry. otherwise he does not have another complaints. I discuss with Dr. Elias Elaine by the phone. Dr. Elaine recommend giving pt Lovenox on the night. I called pharmacy. Pharmacy recommend giving 1mg/kg Lovenox to pt. 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 Current Medications - Current Medications Current Medications: Active Medications Acetaminophen (Tylenol) 650 mg PO Q4HR PRN PRN Reason: Pain 1 to 4 Atorvastatin Calcium (Lipitor) 80 mg PO DAILY [facility] Last Admin: 01/14/18 09:29 Dose: 80 mg Enoxaparin Sodium (Lovenox) 100 mg SUBQ DAILY [facility] Escitalopram Oxalate (Lexapro) 10 mg PO DAILY [facility] Last Admin: 01/14/18 09:29 Dose: 10 mg Ferrous Sulfate (Feosol) 325 mg PO TID [facility] Last Admin: 01/14/18 14:34 Dose: 325 mg Metoprolol Succinate (Toprol Xl) 50 mg PO BID [facility] Last Admin: 01/14/18 09:34 Dose: 50 mg Ondansetron HCl (Zofran Inj) 4 mg IVP Q6HR PRN PRN Reason: Nausea / Vomiting Oxycodone HCl (Roxicodone) 5 mg PO Q4HR PRN PRN Reason: Pain 5 to 7 Oxycodone HCl (Roxicodone) 10 mg PO Q4HR PRN PRN Reason: Pain 8 to 10 Last Admin: 01/14/18 14:34 Dose: 10 mg Pantoprazole Sodium (Protonix) 40 mg IVP BID [facility] Last Admin: 01/14/18 09:29 Dose: 40 mg Polyethylene Glycol (Miralax) 17 gm PO DAILY [facility] Last Admin: 01/14/18 09:34 Dose: Not Given Prochlorperazine Edisylate (Compazine Inj) 10 mg IVP Q6HR PRN PRN Reason: Nausea / Vomiting Promethazine HCl (Phenergan Inj) 25 mg IM Q6HR PRN PRN Reason: Nausea / Vomiting Sodium Chloride (Normal Saline Flush 0.9%) 10 ml IVP PRN PRN PRN Reason: NEEDED PER PROVIDER ORDERS Last Admin: 05/31/18 22:35 Dose: 10 ml Sodium Chloride (Normal Saline Flush 0.9%) 10 ml IVP 0100,0900,1700 [facility] Last Admin: 01/14/18 09:34 Dose: 10 ml Acetaminophen/Diphenhydramine [Tylenol Pm Ex-Strength Caplet] 2 each PO DAILY PM 12/29/17 Aspirin 81 mg PO DAILY 12/29/17 Atorvastatin Calcium 80 mg PO DAILY 12/29/17 Docusate Sodium 100 mg PO BID 12/29/17 Escitalopram [Lexapro] 10 mg PO DAILY 12/29/17 Famotidine 20 mg PO BID 12/29/17 Furosemide [Lasix] 10 mg PO BID 12/29/17 Metoprolol Succinate 25 mg PO DAILY 12/29/17 Multivit-Min/Folic/Vit K/Lycop [Men's Multivitamin Caplet] 1 each PO DAILY 12/29 Potassium Chloride 10 meq PO BID 12/29/17 Ubidecarenone/Vit E Acetate [Co Q-10 100 mg Softgel] 1 each PO DAILY 12/29/17 Warfarin [Coumadin] 0.5 tab PO .QMON-SAT 12/29/17 Warfarin [Coumadin] 2.5 mg PO .QSUNDAY 12/29/17 oxyCODONE [Roxicodone] 5 mg PO TID MDD 15 mg 12/29/17 Colchicine 0.6 mg PO DAILY PRN 01/14/18 Ferrous Gluconate 324 mg PO TID 01/14/18 Metoprolol Succinate 50 mg PO QPM 01/14/18 Objective - Vital Signs/Intake & Output Reviewed Vital Signs: Yes Vital Signs: Vital Signs x48h Temp Pulse Resp BP Pulse Ox 01/14/18 07:36 36.8 C 76 16 104/70 92 Intake & Output: Intake & Output 01/11/18 01/12/18 01/13/18 01/14/18 23:59 23:59 23:59 23:59 Intake Total 1500 2533 Output Total 1200 Balance 1500 1333 - Objective General Appearance: positive: No acute distress, Alert. negative: Lethargic Eyes Bilateral: positive: Normal inspection, PERRL, No lid inflammation, Conjunctivae nml ENT: positive: ENT inspection nml, Pharynx nml, No signs of dehydration. negative: Purulent nasal drainage, Pharyngeal erythema, Oral lesions Neck: positive: Nml inspection, Thyroid nml, No JVD, Trachea midline. negative : Thyromegaly, Stiff neck, Carotid bruit, Swelling/bruising, Tracheal deviation Respiratory: positive: Chest non-tender, No respiratory distress, Breath sounds nml. negative: Wheezes, Rales, Rhonchi Cardiovascular: positive: Regular rate & rhythm, No gallop. negative: Irregularly irregular, Extrasystoles, Tachycardia, Bradycardia, Systolic murmur , Diastolic murmur Peripheral Pulses: 2+ Radial (R), 2+ Radial (L), 2+ Dorsalis pedis (R), 2+ Dorsalis pedis (L) Abdomen: positive: Non-tender, No organomegaly, Nml bowel sounds, No distention. negative: Tenderness, Guarding, Rebound Back: positive: Nml inspection. negative: CVA tenderness (R), CVA tenderness (L ) Skin: positive: Color nml, No rash, Warm, Dry. negative: Cyanosis, Diaphoresis , Pallor Extremities: positive: Non-tender, Full ROM, Nml appearance. negative: Calf tenderness, Joint swelling, Samira's sign/cords Neurologic/Psychiatric: positive: Oriented x3, Motor nml, Sensation nml, Mood/ affect nml. negative: Sensory loss, Facial droop, Slurred/abnml speech, Depressed mood/affect - Lab Results Fish Bones: 01/14/18 17:57 01/14/18 05:50 Other Labs: Lab Results x24hrs 01/14/18 01/14/18 01/14/18 Range/Units 14:04 12:00 05:50 WBC 7.3 7.3 (4.8-10.8) x10^3/uL RBC 3.32 L 3.09 L (4.70-6.10) 10^6/uL Hgb 8.6 L 9.5 L 8.7 L (14.0-18.0) g/dL Hct 25.9 L 28.9 L 26.8 L (42.0-52.0) % MCV 87.0 86.7 (80.0-94.0) fL MCH 28.5 28.1 (27.0-31.0) pg MCHC 32.8 32.4 (32.0-36.0) g/dL RDW 16.5 H 16.0 H (12.0-15.0) % Plt Count 191 190 (130-450) 10^3/uL MPV 7.0 L 7.2 L (7.4-11.4) fL Neut # 4.8 (1.5-6.6) 10^3/uL Lymph # 1.6 (1.5-3.5) 10^3/uL [place] # 0.7 (0.0-1.0) 10^3/uL Eos # 0.3 (0.0-0.7) 10^3/uL Baso # 0.0 (0.0-0.1) 10^3/uL Absolute Nucleated RBC 0.00 0.00 x10^3/uL Neut # (Auto) 4.8 (1.5-6.6) 10^3/uL Lymph # (Auto) 1.3 L (1.5-3.5) 10^3/uL [place] # (Auto) 0.7 (0.0-1.0) 10^3/uL Eos # (Auto) 0.4 (0.0-0.7) 10^3/uL Baso # (Auto) 0.1 (0.0-0.1) 10^3/uL Nucleated RBC % 0.0 0.0 /100WBC PT (9.9-12.6) secs INR (0.8-1.2) Sodium (135-145) mmol/L Potassium (3.5-5.0) mmol/L Chloride (101-111) mmol/L Carbon Dioxide (21-32) mmol/L Anion Gap (6-13) BUN (6-20) mg/dL Creatinine (0.6-1.2) mg/dL Estimated GFR (MDRD) (>89) Glucose (70-100) mg/dL Calcium (8.5-10.3) mg/dL Total Bilirubin (0.2-1.0) mg/dL AST (10-42) IU/L ALT (10-60) IU/L Alkaline Phosphatase (42-121) IU/L Total Protein (6.7-8.2) g/dL Albumin (3.2-5.5) g/dL Globulin (2.1-4.2) g/dL Albumin/Globulin Ratio (1.0-2.2) 01/14/18 01/14/18 01/14/18 Range/Units 05:50 05:50 00:40 WBC 9.0 (4.8-10.8) x10^3/uL RBC 3.28 L (4.70-6.10) 10^6/uL Hgb 9.2 L (14.0-18.0) g/dL Hct 28.5 L (42.0-52.0) % MCV 86.9 (80.0-94.0) fL MCH 28.2 (27.0-31.0) pg MCHC 32.5 (32.0-36.0) g/dL RDW 16.3 H (12.0-15.0) % Plt Count 202 (130-450) 10^3/uL MPV 6.9 L (7.4-11.4) fL Neut # 6.5 (1.5-6.6) 10^3/uL Lymph # 1.5 (1.5-3.5) 10^3/uL [place] # 0.7 (0.0-1.0) 10^3/uL Eos # 0.2 (0.0-0.7) 10^3/uL Baso # 0.1 (0.0-0.1) 10^3/uL Absolute Nucleated RBC 0.00 x10^3/uL Neut # (Auto) (1.5-6.6) 10^3/uL Lymph # (Auto) (1.5-3.5) 10^3/uL [place] # (Auto) (0.0-1.0) 10^3/uL Eos # (Auto) (0.0-0.7) 10^3/uL Baso # (Auto) (0.0-0.1) 10^3/uL Nucleated RBC % 0.0 /100WBC PT 17.7 H (9.9-12.6) secs INR 1.6 H (0.8-1.2) Sodium 139 (135-145) mmol/L Potassium 4.3 (3.5-5.0) mmol/L Chloride 107 (101-111) mmol/L Carbon Dioxide 26 (21-32) mmol/L Anion Gap 6.0 (6-13) BUN 25 H (6-20) mg/dL Creatinine 1.1 (0.6-1.2) mg/dL Estimated GFR (MDRD) 66 L (>89) Glucose 86 (70-100) mg/dL Calcium 8.0 L (8.5-10.3) mg/dL Total Bilirubin 1.1 H (0.2-1.0) mg/dL AST 35 (10-42) IU/L ALT 35 (10-60) IU/L Alkaline Phosphatase 184 H (42-121) IU/L Total Protein 6.1 L (6.7-8.2) g/dL Albumin 2.9 L (3.2-5.5) g/dL Globulin 3.2 (2.1-4.2) g/dL Albumin/Globulin Ratio 0.9 L (1.0-2.2) ABX Reporting Has patient been on IV antibiotics over the past 48 hours?: No Assessment/Plan - Problem List (1) Lower GI bleed Impression: Conclusion/Plan: HGB reveals stable. pt did not have rectal bleeding yet, but pt did not have bowel movement yet H&H per surgeon Dr. Elias Elaine recommends, have Lovenox tonight, closely monitor if pt has bleeding transfer to inpt status Patient presents to the emergency department with bloody stools. Patient had a episode of dizziness and fell then had several episodes of blood in his stools. The patient continued to be dizzy throughout the day and was hypotensive on arrival of EMS. The patient's hemoglobin dropped from 11.72 weeks ago down to 9.8 on presentation. The patient did have a recent colonoscopy with multiple polypectomies one week ago. He had his Coumadin held but that was restarted after the procedure. It is likely the patient is bleeding from the polypectomy sites secondary to his Coumadin. Plan: We will monitor the patient's H&H every 6 hours We will monitor for any further bloody bowel movements We will hold the patient's Coumadin And aspirin Patient will be given IV fluids given his low blood pressure Patient will be given packed RBCs if hemoglobin falls below 7 Surgery will be consulted We will start the patient on IV Protonix until we are sure this is just a lower GI bleed. (2) Atrial fibrillation Conclusion/Plan: HR is controlled continue home meds continue tele, vital monitor Patient has chronic atrial fibrillation. The patient is on Coumadin. The patient's chads 2 score is 3. The patient is also on metoprolol for rate control. The patient's rate appears to be controlled on presentation. Given the patient's ongoing GI bleed his Coumadin will be held. We will need to continue to monitor for any further bleeding and will need to hold off on restarting Coumadin for a few days. (3) LESLEY (acute kidney injury) Conclusion/Plan: creatinine down to 1.1, as his baseline hydration but avoid fluid overload The patient's creatinine is elevated at 1.6 on presentation his normal baseline is between 1.1 and 1.3. Likely the patient has prerenal azotemia given that he has had acute blood loss which likely led to prerenal acute kidney injury. Patient will be given IV fluids and will monitor the patient's creatinine If creatinine does not improve we will consider an retroperitoneal ultrasound Avoid nephrotoxic agents. (4) Hypertension Conclusion/Plan: stable, at borderline hypotensive, vital monitor Patient has history of hypertension but currently on presentation the patient is borderline hypotensive. We will hold the patient's antihypertensive medications until blood pressure is improved. In the setting of this GI bleed we do not want to cause any further hypotension. (5) Depression Conclusion/Plan: Patient has history of depression and does take Lexapro which will be continued while he is hospitalized. The patient is otherwise stable and appears to have a normal mood. (6) Hyperlipidemia Conclusion/Plan: Patient does have a history of hyperlipidemia and does take a statin at home we will continue him on statin while he is hospitalized. (7) Chronic pain Conclusion/Plan: The patient does have a history of chronic back pain and does use oxycodone at home 3 times a day. While he is hospitalized here we will place him on oxycodone as needed. Currently the pain appears to be controlled.
[2018-01-14 18:14] LABS: BASOPHILS % (AUTO) 0.7 %; EOSINOPHILS # (AUTO) 0.5 10^3/uL (0.0-0.7); EOSINOPHILS % (AUTO) 7.4 %; HGB - HEMOGLOBIN 9.4 g/dL (14.0-18.0); LYMPHOCYTES # (AUTO) 1.4 10^3/uL (1.5-3.5); LYMPHOCYTES % (AUTO) 20.4 %; MEAN CORPUSCULAR HEMOGLOBIN 28.1 pg (27.0-31.0); MEAN CORPUSCULAR HGB CONC 32.2 g/dL (32.0-36.0); MEAN PLATELET VOLUME 7.2 fL (7.4-11.4); MONOCYTES # (AUTO) 0.5 10^3/uL (0.0-1.0); MONOCYTES % (AUTO) 7.5 %; NEUTROPHILS # (AUTO) 4.4 10^3/uL (1.5-6.6); PLT - PLATELET COUNT 210 10^3/uL (130-450); RED BLOOD COUNT 3.36 10^6/uL (4.70-6.10); RED CELL DISTRIBUTION WIDTH 16.4 % (12.0-15.0); WHITE BLOOD COUNT 6.9 x10^3/uL (4.8-10.8)
[2018-01-14] MEDS ORDERED: SODIUM CHLORIDE 0.9% 1,000 ML IV SCH (20:00)
[2018-01-14] MEDS ORDERED: ENOXAPARIN 100 MG/ML SYRINGE SUBQ SCH (21:00)
[2018-01-14] MEDS: ENOXAPARIN 100 MG/ML SYRINGE SUBQ SCH (22:10)
[2018-01-14] MEDS: SODIUM CHLORIDE FLUSH 0.9% 10 ML SYRINGE IVP PRN (22:10)
[2018-01-14 22:37] LABS: HGB - HEMOGLOBIN 9.3 g/dL (14.0-18.0)
[2018-01-15] MEDS: SODIUM CHLORIDE FLUSH 0.9% 10 ML SYRINGE IVP SCH ×4 (00:02→23:42)
[2018-01-15 00:36] LABS: BASOPHILS # (AUTO) 0.1 10^3/uL (0.0-0.1); BASOPHILS % (AUTO) 0.6 %; EOSINOPHILS # (AUTO) 0.6 10^3/uL (0.0-0.7); EOSINOPHILS % (AUTO) 7.3 %; HGB - HEMOGLOBIN 8.5 g/dL (14.0-18.0); LYMPHOCYTES # (AUTO) 1.4 10^3/uL (1.5-3.5); LYMPHOCYTES % (AUTO) 17.8 %; MEAN CORPUSCULAR HEMOGLOBIN 27.8 pg (27.0-31.0); MEAN CORPUSCULAR HGB CONC 32.2 g/dL (32.0-36.0); MEAN CORPUSCULAR VOLUME 86.3 fL (80.0-94.0); MONOCYTES # (AUTO) 0.7 10^3/uL (0.0-1.0); MONOCYTES % (AUTO) 8.4 %; NEUTROPHILS # (AUTO) 5.1 10^3/uL (1.5-6.6); NEUTROPHILS % (AUTO) 65.9 %; PLT - PLATELET COUNT 189 10^3/uL (130-450); RED BLOOD COUNT 3.04 10^6/uL (4.70-6.10); RED CELL DISTRIBUTION WIDTH 16.3 % (12.0-15.0); WHITE BLOOD COUNT 7.8 x10^3/uL (4.8-10.8)
[2018-01-15 00:39] LABS: INR 1.6 (0.8-1.2)
[2018-01-15] MEDS: oxyCODONE 5 MG TABLET PO PRN ×3 (00:47→19:57)
[2018-01-15] MEDS: FERROUS SULFATE 325 MG TABLET PO SCH ×3 (06:05→21:36)
[2018-01-15 06:35] LABS: BASOPHILS # (AUTO) 0.1 10^3/uL (0.0-0.1); BASOPHILS % (AUTO) 0.7 %; EOSINOPHILS # (AUTO) 0.7 10^3/uL (0.0-0.7); EOSINOPHILS % (AUTO) 8.6 %; HGB - HEMOGLOBIN 8.6 g/dL (14.0-18.0); LYMPHOCYTES # (AUTO) 2.1 10^3/uL (1.5-3.5); LYMPHOCYTES % (AUTO) 26.7 %; MEAN CORPUSCULAR HEMOGLOBIN 27.7 pg (27.0-31.0); MEAN CORPUSCULAR HGB CONC 31.7 g/dL (32.0-36.0); MEAN CORPUSCULAR VOLUME 87.1 fL (80.0-94.0); MEAN PLATELET VOLUME 7.2 fL (7.4-11.4); MONOCYTES # (AUTO) 0.6 10^3/uL (0.0-1.0); MONOCYTES % (AUTO) 7.8 %; NEUTROPHILS # (AUTO) 4.4 10^3/uL (1.5-6.6); NEUTROPHILS % (AUTO) 56.2 %; PLT - PLATELET COUNT 203 10^3/uL (130-450); RED BLOOD COUNT 3.11 10^6/uL (4.70-6.10); RED CELL DISTRIBUTION WIDTH 16.3 % (12.0-15.0); WHITE BLOOD COUNT 7.8 x10^3/uL (4.8-10.8)
[2018-01-15 06:46] LABS: ALBUMIN 2.9 g/dL (3.2-5.5); ALBUMIN/GLOBULIN RATIO 0.9 (1.0-2.2); CALCIUM 7.8 mg/dL (8.5-10.3); CREATININE 1.1 mg/dL (0.6-1.2); TOTAL PROTEIN 6.3 g/dL (6.7-8.2)
[2018-01-15] MEDS: PANTOPRAZOLE 40 MG VIAL IVP SCH ×2 (10:14→21:36)
[2018-01-15] MEDS: ATORVASTATIN 40 MG TABLET PO SCH (10:14)
[2018-01-15] MEDS: ENOXAPARIN 100 MG/ML SYRINGE SUBQ SCH ×2 (10:14→21:37)
[2018-01-15] MEDS: METOPROLOL SUCCINATE 50 MG TABLET PO SCH (10:15)
[2018-01-15] MEDS: ESCITALOPRAM 10 MG TABLET PO SCH (10:15)
[2018-01-15] MEDS: POLYETHYLENE GLYCOL 3350 17 GM PACKET PO SCH (10:15)
[2018-01-15 11:59] LABS: BASOPHILS % (AUTO) 0.6 %; EOSINOPHILS # (AUTO) 0.6 10^3/uL (0.0-0.7); EOSINOPHILS % (AUTO) 7.5 %; HGB - HEMOGLOBIN 8.9 g/dL (14.0-18.0); LYMPHOCYTES # (AUTO) 1.5 10^3/uL (1.5-3.5); LYMPHOCYTES % (AUTO) 19.3 %; MEAN CORPUSCULAR HEMOGLOBIN 28.5 pg (27.0-31.0); MEAN CORPUSCULAR HGB CONC 32.9 g/dL (32.0-36.0); MEAN CORPUSCULAR VOLUME 86.7 fL (80.0-94.0); MEAN PLATELET VOLUME 6.9 fL (7.4-11.4); MONOCYTES # (AUTO) 0.8 10^3/uL (0.0-1.0); MONOCYTES % (AUTO) 9.4 %; NEUTROPHILS # (AUTO) 5.1 10^3/uL (1.5-6.6); NEUTROPHILS % (AUTO) 63.2 %; PLT - PLATELET COUNT 185 10^3/uL (130-450); RED BLOOD COUNT 3.14 10^6/uL (4.70-6.10); RED CELL DISTRIBUTION WIDTH 16.1 % (12.0-15.0)
[2018-01-15] MEDS ORDERED: WARFARIN 5 MG TABLET PO SCH (12:00)
[2018-01-15] MEDS ORDERED: SODIUM CHLORIDE 0.9% 500 ML IV ONE (13:25)
[2018-01-15] MEDS ORDERED: SODIUM CHLORIDE 0.9% 1,000 ML IV ONE (13:39)
[2018-01-15] MEDS ORDERED: SODIUM CHLORIDE 0.9% 1,000 ML IV SCH (14:00)
--- NOTE | 2018-01-15 14:05 | PROVIDER PROGRESS NOTE ---
Subjective - Prog Note Date Prog Note Date: 01/15/18 - Subjective Pt reports feeling: No change Subjective: pt report he does not have bowel movement yet, no rectal bleeding was found. Pt denies chest pain, SOB. No fever, chill. I called pt's shirt ironer Dr. Augie Bloom for consulting when pt starts his Coumadin. I report to Dr. Bloom pt was admitted for GI bleeding. Dr. Bloom recommend start Coumadin today, and at the same time let pt have Lovenox today as well, stop pt's Aspirin, until pt's INR reach to 2.00, then pt can be d/c to home with Coumadin, and follow up him. I discussed the plan with pt and pt's , they agree with the plan. Also Dr. Bloom discussed the plan with pt's as well. I reported the plan, which I discussed with Dr. Bloom, to surgeon Dr. Womack. Dr. Womack agreed the plan as well. pt has AFIb and mechanical valve. Current Medications - Current Medications Current Medications: Active Medications Acetaminophen (Tylenol) 650 mg PO Q4HR PRN PRN Reason: Pain 1 to 4 Atorvastatin Calcium (Lipitor) 80 mg PO DAILY [facility] Last Admin: 01/15/18 10:14 Dose: 80 mg Enoxaparin Sodium (Lovenox) 100 mg SUBQ BID [facility] Escitalopram Oxalate (Lexapro) 10 mg PO DAILY [facility] Last Admin: 01/15/18 10:15 Dose: 10 mg Ferrous Sulfate (Feosol) 325 mg PO TID [facility] Last Admin: 01/15/18 06:05 Dose: 325 mg Sodium Chloride (Normal Saline 0.9%) 1,000 mls @ 83.333 mls/hr IV .Q12H [facility] Last Admin: 01/15/18 14:03 Dose: 83.333 mls/hr Metoprolol Succinate (Toprol Xl) 25 mg PO DAILY [facility] Metoprolol Succinate (Toprol Xl) 50 mg PO QPM [facility] Ondansetron HCl (Zofran Inj) 4 mg IVP Q6HR PRN PRN Reason: Nausea / Vomiting Oxycodone HCl (Roxicodone) 5 mg PO TID PRN PRN Reason: PAIN Last Admin: 01/15/18 11:53 Dose: 5 mg Pantoprazole Sodium (Protonix) 40 mg IVP BID [facility] Last Admin: 01/15/18 10:14 Dose: 40 mg Polyethylene Glycol (Miralax) 17 gm PO DAILY [facility] Last Admin: 01/15/18 10:15 Dose: 17 gm Prochlorperazine Edisylate (Compazine Inj) 10 mg IVP Q6HR PRN PRN Reason: Nausea / Vomiting Promethazine HCl (Phenergan Inj) 25 mg IM Q6HR PRN PRN Reason: Nausea / Vomiting Sodium Chloride (Normal Saline Flush 0.9%) 10 ml IVP PRN PRN PRN Reason: NEEDED PER PROVIDER ORDERS Last Admin: 01/14/18 22:10 Dose: 20 ml Sodium Chloride (Normal Saline Flush 0.9%) 10 ml IVP 0100,0900,1700 [facility] Last Admin: 01/15/18 10:14 Dose: 10 ml Warfarin Sodium (Coumadin) 5 mg PO QDWARFARIN [facility] Last Admin: 01/15/18 11:53 Dose: 5 mg Acetaminophen/Diphenhydramine [Tylenol Pm Ex-Strength Caplet] 2 each PO DAILY PM 12/29/17 Aspirin 81 mg PO DAILY 12/29/17 Atorvastatin Calcium 80 mg PO DAILY 12/29/17 Docusate Sodium 100 mg PO BID 12/29/17 Escitalopram [Lexapro] 10 mg PO DAILY 12/29/17 Famotidine 20 mg PO BID 12/29/17 Furosemide [Lasix] 10 mg PO BID 12/29/17 Metoprolol Succinate 25 mg PO DAILY 12/29/17 Multivit-Min/Folic/Vit K/Lycop [Men's Multivitamin Caplet] 1 each PO DAILY 12/29 Potassium Chloride 10 meq PO BID 12/29/17 Ubidecarenone/Vit E Acetate [Co Q-10 100 mg Softgel] 1 each PO DAILY 12/29/17 Warfarin [Coumadin] 0.5 tab PO .QMON-SAT 12/29/17 Warfarin [Coumadin] 2.5 mg PO .QSUNDAY 12/29/17 oxyCODONE [Roxicodone] 5 mg PO TID MDD 15 mg 12/29/17 Colchicine 0.6 mg PO DAILY PRN 01/14/18 Ferrous Gluconate 324 mg PO TID 01/14/18 Metoprolol Succinate 50 mg PO QPM 01/14/18 Objective - Vital Signs/Intake & Output Reviewed Vital Signs: Yes Vital Signs: Vital Signs x48h Temp Pulse Resp BP BP Pulse Ox 01/15/18 13:39 70 17 126/80 95 01/15/18 13:19 36.5 C 81 18 101/63 94 01/15/18 13:15 110 H 82/42 L 01/15/18 12:45 101/63 01/15/18 08:00 37.2 C 89 16 138/96 H 92 Intake & Output: Intake & Output 01/12/18 01/13/18 01/14/18 01/15/18 23:59 23:59 23:59 23:59 Intake Total 300 1590 Output Total 300 350 Balance 0 1240 - Objective General Appearance: positive: No acute distress, Alert. negative: Lethargic Eyes Bilateral: positive: Normal inspection, PERRL, No lid inflammation, Conjunctivae nml ENT: positive: ENT inspection nml, Pharynx nml, No signs of dehydration. negative: Purulent nasal drainage, Pharyngeal erythema, Oral lesions Neck: positive: Nml inspection, Thyroid nml, No JVD, Trachea midline. negative : Thyromegaly, Lymphadenopathy (R), Lymphadenopathy (L), Stiff neck, Carotid bruit, Swelling/bruising, Tracheal deviation Respiratory: positive: Chest non-tender, No respiratory distress, Breath sounds nml. negative: Wheezes, Rales, Rhonchi Cardiovascular: positive: Regular rate & rhythm, No murmur, No gallop. negative : Irregularly irregular, Extrasystoles, Tachycardia, Bradycardia, Systolic murmur, Diastolic murmur Peripheral Pulses: 2+ Radial (R), 2+ Radial (L), 2+ Dorsalis pedis (R), 2+ Dorsalis pedis (L) Abdomen: positive: Non-tender, No organomegaly, Nml bowel sounds, No distention. negative: Tenderness, Guarding, Rebound Back: positive: Nml inspection. negative: CVA tenderness (R), CVA tenderness (L ) Skin: positive: Color nml, No rash, Warm, Dry. negative: Cyanosis, Diaphoresis , Pallor Extremities: positive: Non-tender, Full ROM, Nml appearance. negative: Calf tenderness, Joint swelling, Samira's sign/cords Neurologic/Psychiatric: positive: Oriented x3, Sensation nml, Mood/affect nml. negative: Sensory loss, Facial droop, Slurred/abnml speech, Depressed mood/ affect - Lab Results Fish Bones: 01/15/18 11:53 01/15/18 06:10 Other Labs: Lab Results x24hrs 01/15/18 01/15/18 01/15/18 Range/Units 11:53 06:10 06:10 WBC 8.0 7.8 (4.8-10.8) x10^3/uL RBC 3.14 L 3.11 L (4.70-6.10) 10^6/uL Hgb 8.9 L 8.6 L (14.0-18.0) g/dL Hct 27.2 L 27.1 L (42.0-52.0) % MCV 86.7 87.1 (80.0-94.0) fL MCH 28.5 27.7 (27.0-31.0) pg MCHC 32.9 31.7 L (32.0-36.0) g/dL RDW 16.1 H 16.3 H (12.0-15.0) % Plt Count 185 203 (130-450) 10^3/uL MPV 6.9 L 7.2 L (7.4-11.4) fL Neut # (Auto) 5.1 4.4 (1.5-6.6) 10^3/uL Lymph # (Auto) 1.5 2.1 (1.5-3.5) 10^3/uL [place] # (Auto) 0.8 0.6 (0.0-1.0) 10^3/uL Eos # (Auto) 0.6 0.7 (0.0-0.7) 10^3/uL Baso # (Auto) 0.0 0.1 (0.0-0.1) 10^3/uL Absolute Nucleated RBC 0.00 0.00 x10^3/uL Nucleated RBC % 0.0 0.0 /100WBC PT (9.9-12.6) secs INR (0.8-1.2) Sodium 137 (135-145) mmol/L Potassium 3.9 (3.5-5.0) mmol/L Chloride 104 (101-111) mmol/L Carbon Dioxide 24 (21-32) mmol/L Anion Gap 9.0 (6-13) BUN 21 H (6-20) mg/dL Creatinine 1.1 (0.6-1.2) mg/dL Estimated GFR (MDRD) 66 L (>89) Glucose 102 H (70-100) mg/dL Calcium 7.8 L (8.5-10.3) mg/dL Total Bilirubin 1.0 (0.2-1.0) mg/dL AST 32 (10-42) IU/L ALT 31 (10-60) IU/L Alkaline Phosphatase 186 H (42-121) IU/L Total Protein 6.3 L (6.7-8.2) g/dL Albumin 2.9 L (3.2-5.5) g/dL Globulin 3.4 (2.1-4.2) g/dL Albumin/Globulin Ratio 0.9 L (1.0-2.2) 01/15/18 01/15/18 01/14/18 Range/Units 00:20 00:20 20:25 WBC 7.8 (4.8-10.8) x10^3/uL RBC 3.04 L (4.70-6.10) 10^6/uL Hgb 8.5 L 9.3 L (14.0-18.0) g/dL Hct 26.2 L 29.0 L (42.0-52.0) % MCV 86.3 (80.0-94.0) fL MCH 27.8 (27.0-31.0) pg MCHC 32.2 (32.0-36.0) g/dL RDW 16.3 H (12.0-15.0) % Plt Count 189 (130-450) 10^3/uL MPV 7.0 L (7.4-11.4) fL Neut # (Auto) 5.1 (1.5-6.6) 10^3/uL Lymph # (Auto) 1.4 L (1.5-3.5) 10^3/uL [place] # (Auto) 0.7 (0.0-1.0) 10^3/uL Eos # (Auto) 0.6 (0.0-0.7) 10^3/uL Baso # (Auto) 0.1 (0.0-0.1) 10^3/uL Absolute Nucleated RBC 0.00 x10^3/uL Nucleated RBC % 0.0 /100WBC PT 18.0 H (9.9-12.6) secs INR 1.6 H (0.8-1.2) Sodium (135-145) mmol/L Potassium (3.5-5.0) mmol/L Chloride (101-111) mmol/L Carbon Dioxide (21-32) mmol/L Anion Gap (6-13) BUN (6-20) mg/dL Creatinine (0.6-1.2) mg/dL Estimated GFR (MDRD) (>89) Glucose (70-100) mg/dL Calcium (8.5-10.3) mg/dL Total Bilirubin (0.2-1.0) mg/dL AST (10-42) IU/L ALT (10-60) IU/L Alkaline Phosphatase (42-121) IU/L Total Protein (6.7-8.2) g/dL Albumin (3.2-5.5) g/dL Globulin (2.1-4.2) g/dL Albumin/Globulin Ratio (1.0-2.2) 01/14/18 Range/Units 17:57 WBC 6.9 (4.8-10.8) x10^3/uL RBC 3.36 L (4.70-6.10) 10^6/uL Hgb 9.4 L (14.0-18.0) g/dL Hct 29.3 L (42.0-52.0) % MCV 87.0 (80.0-94.0) fL MCH 28.1 (27.0-31.0) pg MCHC 32.2 (32.0-36.0) g/dL RDW 16.4 H (12.0-15.0) % Plt Count 210 (130-450) 10^3/uL MPV 7.2 L (7.4-11.4) fL Neut # (Auto) 4.4 (1.5-6.6) 10^3/uL Lymph # (Auto) 1.4 L (1.5-3.5) 10^3/uL [place] # (Auto) 0.5 (0.0-1.0) 10^3/uL Eos # (Auto) 0.5 (0.0-0.7) 10^3/uL Baso # (Auto) 0.0 (0.0-0.1) 10^3/uL Absolute Nucleated RBC 0.00 x10^3/uL Nucleated RBC % 0.0 /100WBC PT (9.9-12.6) secs INR (0.8-1.2) Sodium (135-145) mmol/L Potassium (3.5-5.0) mmol/L Chloride (101-111) mmol/L Carbon Dioxide (21-32) mmol/L Anion Gap (6-13) BUN (6-20) mg/dL Creatinine (0.6-1.2) mg/dL Estimated GFR (MDRD) (>89) Glucose (70-100) mg/dL Calcium (8.5-10.3) mg/dL Total Bilirubin (0.2-1.0) mg/dL AST (10-42) IU/L ALT (10-60) IU/L Alkaline Phosphatase (42-121) IU/L Total Protein (6.7-8.2) g/dL Albumin (3.2-5.5) g/dL Globulin (2.1-4.2) g/dL Albumin/Globulin Ratio (1.0-2.2) ABX Reporting Has patient been on IV antibiotics over the past 48 hours?: No Assessment/Plan - Problem List (1) Lower GI bleed Impression: Impression: pt has no rectal bleeding, but pt also has no bowel movement. HGB is relative stable per pt's shirt ironer recommend, start Coumadin and Lovenox H&H Q6H type screen Guiacc test PT/INR HGB reveals stable. pt did not have rectal bleeding yet, but pt did not have bowel movement yet H&H per surgeon Dr. Elias Elaine recommends, have Lovenox tonight, closely monitor if pt has bleeding transfer to inpt status Patient presents to the emergency department with bloody stools. Patient had a episode of dizziness and fell then had several episodes of blood in his stools. The patient continued to be dizzy throughout the day and was hypotensive on arrival of EMS. The patient's hemoglobin dropped from 11.72 weeks ago down to 9.8 on presentation. The patient did have a recent colonoscopy with multiple polypectomies one week ago. He had his Coumadin held but that was restarted after the procedure. It is likely the patient is bleeding from the polypectomy sites secondary to his Coumadin. Plan: We will monitor the patient's H&H every 6 hours We will monitor for any further bloody bowel movements We will hold the patient's Coumadin And aspirin Patient will be given IV fluids given his low blood pressure Patient will be given packed RBCs if hemoglobin falls below 7 Surgery will be consulted We will start the patient on IV Protonix until we are sure this is just a lower GI bleed. (2) Atrial fibrillation Conclusion/Plan: HR is controlled continue home meds continue tele, vital monitor Patient has chronic atrial fibrillation. The patient is on Coumadin. The patient's chads 2 score is 3. The patient is also on metoprolol for rate control. The patient's rate appears to be controlled on presentation. Given the patient's ongoing GI bleed his Coumadin will be held. We will need to continue to monitor for any further bleeding and will need to hold off on restarting Coumadin for a few days. (3) LESLEY (acute kidney injury) Conclusion/Plan: improved to pt's baseline continue hydration daily lab and vital monitor creatinine down to 1.1, as his baseline hydration but avoid fluid overload The patient's creatinine is elevated at 1.6 on presentation his normal baseline is between 1.1 and 1.3. Likely the patient has prerenal azotemia given that he has had acute blood loss which likely led to prerenal acute kidney injury. Patient will be given IV fluids and will monitor the patient's creatinine If creatinine does not improve we will consider an retroperitoneal ultrasound Avoid nephrotoxic agents. (4) Hypotension Conclusion/Plan: pt became hypotensive, hold today blood pressure meds start 500 ns bolus vital monitor may restart BP meds after pt is stable. Pt has Metoprolol. stable, at borderline hypotensive, vital monitor Patient has history of hypertension but currently on presentation the patient is borderline hypotensive. We will hold the patient's antihypertensive medications until blood pressure is improved. In the setting of this GI bleed we do not want to cause any further hypotension. (5) Depression Conclusion/Plan: Patient has history of depression and does take Lexapro which will be continued while he is hospitalized. The patient is otherwise stable and appears to have a normal mood. (6) Hyperlipidemia Conclusion/Plan: Patient does have a history of hyperlipidemia and does take a statin at home we will continue him on statin while he is hospitalized. (7) Chronic pain Conclusion/Plan: The patient does have a history of chronic back pain and does use oxycodone at home 3 times a day. While he is hospitalized here we will place him on oxycodone as needed. Currently the pain appears to be controlled.
[2018-01-15] MEDS: SODIUM CHLORIDE 0.9% 1,000 ML IV SCH ×2 (15:07→20:45)
[2018-01-15 18:14] LABS: HGB - HEMOGLOBIN 8.1 g/dL (14.0-18.0)
[2018-01-15] MEDS ORDERED: ACETAMINOPHEN 325 MG TABLET PO PRN (20:24)
[2018-01-15] MEDS ORDERED: ENOXAPARIN 100 MG/ML SYRINGE SUBQ SCH (21:00)
[2018-01-15 21:26] LABS: BILIRUBIN,URINE NEGATIVE (NEGATIVE); GLUCOSE, URINE (UA) NEGATIVE (NEGATIVE); KETONES,URINE (UA) NEGATIVE (NEGATIVE); LEUKOCYTE ESTERASE, URINE NEGATIVE (NEGATIVE); NITRITE,URINE NEGATIVE (NEGATIVE); OCCULT BLOOD,URINE NEGATIVE (NEGATIVE); PROTEIN,URINE NEGATIVE (NEGATIVE); UROBILINOGEN,URINE 0.2 (NORMAL) E.U./dL (NORMAL)
[2018-01-15] MEDS: SODIUM CHLORIDE FLUSH 0.9% 10 ML SYRINGE IVP PRN (21:37)
[2018-01-15 21:39] LABS: BACTERIA,URINE None Seen /HPF (None Seen); CLARITY,URINE CLEAR (CLEAR); RBC,URINE None Seen /HPF (0-5); SQUAMOUS EPITHELIAL CELL,UR RARE Squamous (<= Few)
[2018-01-15] MEDS: DOCUSATE SODIUM 250 MG CAPSULE PO SCH (21:47)
[2018-01-15] MEDS: SENNA 8.6 MG TABLET PO SCH (21:47)
[2018-01-16 00:37] LABS: HGB - HEMOGLOBIN 8.1 g/dL (14.0-18.0)
--- NOTE | 2018-01-16 01:59 | PROVIDER PROGRESS NOTE ---
Subjective - General Admit Date: 01/14/18 - Review of Systems General: positive: No symptoms (Patient examined at 0830 01-15-18 documented now.) HEENT: positive: No symptoms Pulmonary: positive: No symptoms Cardiovascular: positive: No symptoms All Other Systems: positive: Other (memory dysfunction limits accuracy of ROS) Objective - Patient Data Reviewed Vital Signs: Yes Vital Signs: Vital Signs x48h Temp Pulse Resp BP Pulse Ox 01/15/18 23:47 37.4 C 77 18 113/68 93 01/15/18 21:50 37.7 C H 84 16 124/67 94 01/15/18 20:13 38.0 C H 81 24 100/62 95 Intake & Output: Intake and Output Totals x24h 01/14/18 01/15/18 01/16/18 23:59 23:59 23:59 Intake Total 300 3027.5 Output Total 300 950 Balance 0 2077.5 - Lab Results Lab Results: 01/16/18 05:05 01/16/18 05:05 Other Lab Results: Lab Results x24hrs 01/16/18 01/15/18 01/15/18 Range/Units 00:25 21:18 18:03 WBC (4.8-10.8) x10^3/uL RBC (4.70-6.10) 10^6/uL Hgb 8.1 L 8.1 L (14.0-18.0) g/dL Hct 24.6 L 25.3 L (42.0-52.0) % MCV (80.0-94.0) fL MCH (27.0-31.0) pg MCHC (32.0-36.0) g/dL RDW (12.0-15.0) % Plt Count (130-450) 10^3/uL MPV (7.4-11.4) fL Neut # (Auto) (1.5-6.6) 10^3/uL Lymph # (Auto) (1.5-3.5) 10^3/uL [place] # (Auto) (0.0-1.0) 10^3/uL Eos # (Auto) (0.0-0.7) 10^3/uL Baso # (Auto) (0.0-0.1) 10^3/uL Absolute Nucleated RBC x10^3/uL Nucleated RBC % /100WBC Sodium (135-145) mmol/L Potassium (3.5-5.0) mmol/L Chloride (101-111) mmol/L Carbon Dioxide (21-32) mmol/L Anion Gap (6-13) BUN (6-20) mg/dL Creatinine (0.6-1.2) mg/dL Estimated GFR (MDRD) (>89) Glucose (70-100) mg/dL Calcium (8.5-10.3) mg/dL Total Bilirubin (0.2-1.0) mg/dL AST (10-42) IU/L ALT (10-60) IU/L Alkaline Phosphatase (42-121) IU/L Total Protein (6.7-8.2) g/dL Albumin (3.2-5.5) g/dL Globulin (2.1-4.2) g/dL Albumin/Globulin Ratio (1.0-2.2) Urine Color YELLOW Urine Clarity CLEAR (CLEAR) Urine pH 5.0 (5.0-7.5) PH Ur Specific [place] 1.020 (1.002-1.030) Urine Protein NEGATIVE (NEGATIVE) mg/dL Urine Glucose (UA) NEGATIVE (NEGATIVE) mg/dL Urine Ketones NEGATIVE (NEGATIVE) mg/dL Urine Occult Blood NEGATIVE (NEGATIVE) Urine Nitrite NEGATIVE (NEGATIVE) Urine Bilirubin NEGATIVE (NEGATIVE) Urine Urobilinogen 0.2 (NORMAL) (NORMAL) E.U./dL Ur Leukocyte Esterase NEGATIVE (NEGATIVE) Urine RBC None Seen (0-5) /HPF Urine WBC 0-3 (0-3) /HPF Ur Squamous Epith Cells RARE Squamous (<= Few) Urine Bacteria None Seen (None Seen) /HPF Urine Culture Comments NOT INDICATED 01/15/18 01/15/18 01/15/18 Range/Units 11:53 06:10 06:10 WBC 8.0 7.8 (4.8-10.8) x10^3/uL RBC 3.14 L 3.11 L (4.70-6.10) 10^6/uL Hgb 8.9 L 8.6 L (14.0-18.0) g/dL Hct 27.2 L 27.1 L (42.0-52.0) % MCV 86.7 87.1 (80.0-94.0) fL MCH 28.5 27.7 (27.0-31.0) pg MCHC 32.9 31.7 L (32.0-36.0) g/dL RDW 16.1 H 16.3 H (12.0-15.0) % Plt Count 185 203 (130-450) 10^3/uL MPV 6.9 L 7.2 L (7.4-11.4) fL Neut # (Auto) 5.1 4.4 (1.5-6.6) 10^3/uL Lymph # (Auto) 1.5 2.1 (1.5-3.5) 10^3/uL [place] # (Auto) 0.8 0.6 (0.0-1.0) 10^3/uL Eos # (Auto) 0.6 0.7 (0.0-0.7) 10^3/uL Baso # (Auto) 0.0 0.1 (0.0-0.1) 10^3/uL Absolute Nucleated RBC 0.00 0.00 x10^3/uL Nucleated RBC % 0.0 0.0 /100WBC Sodium 137 (135-145) mmol/L Potassium 3.9 (3.5-5.0) mmol/L Chloride 104 (101-111) mmol/L Carbon Dioxide 24 (21-32) mmol/L Anion Gap 9.0 (6-13) BUN 21 H (6-20) mg/dL Creatinine 1.1 (0.6-1.2) mg/dL Estimated GFR (MDRD) 66 L (>89) Glucose 102 H (70-100) mg/dL Calcium 7.8 L (8.5-10.3) mg/dL Total Bilirubin 1.0 (0.2-1.0) mg/dL AST 32 (10-42) IU/L ALT 31 (10-60) IU/L Alkaline Phosphatase 186 H (42-121) IU/L Total Protein 6.3 L (6.7-8.2) g/dL Albumin 2.9 L (3.2-5.5) g/dL Globulin 3.4 (2.1-4.2) g/dL Albumin/Globulin Ratio 0.9 L (1.0-2.2) Urine Color Urine Clarity (CLEAR) Urine pH (5.0-7.5) PH Ur Specific [place] (1.002-1.030) Urine Protein (NEGATIVE) mg/dL Urine Glucose (UA) (NEGATIVE) mg/dL Urine Ketones (NEGATIVE) mg/dL Urine Occult Blood (NEGATIVE) Urine Nitrite (NEGATIVE) Urine Bilirubin (NEGATIVE) Urine Urobilinogen (NORMAL) E.U./dL Ur Leukocyte Esterase (NEGATIVE) Urine RBC (0-5) /HPF Urine WBC (0-3) /HPF Ur Squamous Epith Cells (<= Few) Urine Bacteria (None Seen) /HPF Urine Culture Comments - Current Medications Current Medications: Current Medications Generic Name Dose Route Start Last Admin Trade Name Freq PRN Reason Stop Dose Admin Acetaminophen 650 mg 01/15/18 20:24 01/15/18 20:47 Tylenol PO 650 mg Q4HR PRN Administration Pain or Fever > 38C (100.4F) Atorvastatin Calcium 80 mg 01/14/18 09:00 01/15/18 10:14 Lipitor PO 80 mg DAILY [facility] Administration Docusate Sodium 250 - 500 mg 01/15/18 21:24 01/15/18 21:47 Colace 250mg Capsule PO 250 mg DAILY [facility] Administration Enoxaparin Sodium 100 mg 01/15/18 21:00 01/15/18 21:37 Lovenox SUBQ 100 mg BID [facility] Administration Escitalopram Oxalate 10 mg 01/14/18 09:00 01/15/18 10:15 Lexapro PO 10 mg DAILY [facility]ER Administration Ferrous Sulfate 325 mg 01/13/18 22:00 01/15/18 21:36 Feosol PO 325 mg TID [facility]ER Administration Sodium Chloride 1,000 mls @ 75 mls/hr 01/15/18 14:22 01/15/18 20:45 Normal Saline 0.9% IV 75 mls/hr .[id number] [facility] Administration Oxycodone HCl 5 mg 01/15/18 11:04 01/15/18 19:57 Roxicodone PO 5 mg TID PRN Administration PAIN Pantoprazole Sodium 40 mg 01/13/18 21:00 01/15/18 21:36 Protonix IVP 40 mg BID [facility]ER Administration Polyethylene Glycol 17 gm 01/14/18 09:00 01/15/18 10:15 Miralax PO 17 gm DAILY [facility] Administration Senna 8.6 - 17.2 mg 01/15/18 21:25 01/15/18 21:47 Senokot PO 8.6 mg DAILY [facility]ER Administration Sodium Chloride 10 ml 01/13/18 20:17 01/15/18 21:37 Normal Saline Flush 0.9% IVP 10 ml PRN PRN Administration NEEDED PER PROVIDER ORDERS Sodium Chloride 10 ml 01/14/18 01:00 01/15/18 23:42 Normal Saline Flush 0.9% IVP 10 ml 0100,0900,1700 [facility]ER Administration Warfarin Sodium 5 mg 01/15/18 12:00 01/15/18 11:53 Coumadin PO 5 mg [id number] [facility]ER Administration - Physical Exam General Appearance: positive: No acute distress Eyes Bilateral: positive: No lid inflammation, Conjunctivae nml, No scleral icterus Neck: positive: Thyroid nml Respiratory: positive: Chest non-tender, No respiratory distress, Breath sounds nml Cardiovascular: positive: Irregularly irregular Abdomen: positive: Non-tender, Nml bowel sounds Impression/Plan - Problem List Problem List: The patient had a colonoscopy performed while on blood thinners. Several studies have shown that this is generally safe and can be done but in this case the patient bleed post-procedurally. It seems to have stopped and ongoing treatment is balancing his need for anticoagulation with the risk of bleeding. I think at this point the patient can safely be discharged home and have him follow up with our office to over the pathology on his polypectomy.
[2018-01-16] MEDS: oxyCODONE 5 MG TABLET PO PRN ×2 (05:22→13:51)
[2018-01-16] MEDS: FERROUS SULFATE 325 MG TABLET PO SCH ×2 (05:22→13:51)
[2018-01-16 06:00] LABS: BASOPHILS % (AUTO) 0.6 %; EOSINOPHILS # (AUTO) 0.5 10^3/uL (0.0-0.7); EOSINOPHILS % (AUTO) 6.6 %; INR 1.9 (0.8-1.2); LYMPHOCYTES # (AUTO) 2.1 10^3/uL (1.5-3.5); LYMPHOCYTES % (AUTO) 26.7 %; MEAN CORPUSCULAR HEMOGLOBIN 28.2 pg (27.0-31.0); MEAN CORPUSCULAR HGB CONC 32.5 g/dL (32.0-36.0); MEAN CORPUSCULAR VOLUME 86.9 fL (80.0-94.0); MEAN PLATELET VOLUME 7.3 fL (7.4-11.4); MONOCYTES # (AUTO) 0.8 10^3/uL (0.0-1.0); MONOCYTES % (AUTO) 10.8 %; NEUTROPHILS # (AUTO) 4.3 10^3/uL (1.5-6.6); NEUTROPHILS % (AUTO) 55.3 %; PLT - PLATELET COUNT 185 10^3/uL (130-450); PT - PROTHROMBIN TIME 20.6 secs (9.9-12.6); RED BLOOD COUNT 2.83 10^6/uL (4.70-6.10); RED CELL DISTRIBUTION WIDTH 16.3 % (12.0-15.0); WHITE BLOOD COUNT 7.8 x10^3/uL (4.8-10.8)
[2018-01-16 06:06] LABS: ALBUMIN 2.6 g/dL (3.2-5.5); ALBUMIN/GLOBULIN RATIO 0.8 (1.0-2.2); CALCIUM 7.9 mg/dL (8.5-10.3); TOTAL PROTEIN 5.8 g/dL (6.7-8.2)
--- NOTE | 2018-01-16 07:57 | XRAY Report ---
EXAM: CHEST RADIOGRAPHY EXAM DATE: 01/16/2018 07:36 AM. CLINICAL HISTORY: Fever. COMPARISON: 02/22/2017. TECHNIQUE: 1 view. FINDINGS: Lungs/Pleura: Chronic partially loculated small left pleural effusion, stable when compared to 7. Indistinctness of the bilateral interstitial markings. No pneumothorax. Mediastinum: Stable cardiac silhouette. Other: None. IMPRESSION: 1. Prominent central vasculature and interstitial markings, query interstitial edema. 2. Chronic small partially loculated left pleural effusion. [facility] Referring Provider Line: [phone] SITE ID: [id number]
--- NOTE | 2018-01-16 07:57 | XRAY Preliminary Report ---
Exam: XR CHEST 1 VIEW X-RAY IMPRESSION: 1. Prominent central vasculature and interstitial markings, query interstitial edema. 2. Chronic small partially loculated left pleural effusion. [facility] SITE ID: [id number]
[2018-01-16] MEDS ORDERED: MAGNESIUM CITRATE 296 ML BOTTLE PO ONE (08:00)
[2018-01-16] MEDS: DOCUSATE SODIUM 250 MG CAPSULE PO SCH (08:33)
[2018-01-16] MEDS: PANTOPRAZOLE 40 MG VIAL IVP SCH (08:33)
[2018-01-16] MEDS: ATORVASTATIN 40 MG TABLET PO SCH (08:34)
[2018-01-16] MEDS: SODIUM CHLORIDE FLUSH 0.9% 10 ML SYRINGE IVP SCH (08:34)
[2018-01-16] MEDS: SODIUM CHLORIDE FLUSH 0.9% 10 ML SYRINGE IVP PRN (08:34)
[2018-01-16] MEDS: SENNA 8.6 MG TABLET PO SCH (08:34)
[2018-01-16] MEDS: ESCITALOPRAM 10 MG TABLET PO SCH (08:34)
[2018-01-16] MEDS: ENOXAPARIN 100 MG/ML SYRINGE SUBQ SCH ×2 (08:34→14:22)
[2018-01-16] MEDS ORDERED: METOPROLOL SUCCINATE 25 MG TABLET PO SCH (09:00)
[2018-01-16] MEDS ORDERED: FUROSEMIDE 20 MG TABLET PO SCH (10:00)
[2018-01-16] MEDS: POLYETHYLENE GLYCOL 3350 17 GM PACKET PO SCH (10:33)
[2018-01-16 11:04] LABS: BILIRUBIN,URINE NEGATIVE (NEGATIVE); GLUCOSE, URINE (UA) NEGATIVE (NEGATIVE); KETONES,URINE (UA) NEGATIVE (NEGATIVE); LEUKOCYTE ESTERASE, URINE NEGATIVE (NEGATIVE); NITRITE,URINE NEGATIVE (NEGATIVE); OCCULT BLOOD,URINE NEGATIVE (NEGATIVE); PROTEIN,URINE NEGATIVE (NEGATIVE); UROBILINOGEN,URINE 0.2 (NORMAL) E.U./dL (NORMAL)
[2018-01-16 11:10] LABS: CLARITY,URINE CLEAR (CLEAR)
--- NOTE | 2018-01-16 11:20 | Discharge Plan ---
Discharge Plan Disposition: Home, Self Care Condition: Serious Prescriptions: Omeprazole 40 mg PO DAILY #10 capsule. Diet: Cardiac Activity Restrictions: Activity as Tolerated Shower Restrictions: No (caregiver closely monitor, fall precaution) Weight Bearing: Full Weight Instruction Topics: Bleeding Gastrointestinal, Omeprazole tablets OTC Additional Instructions or Follow Up instructions: You may follow up your PCP in 2-3 days and have blood work including PT/INR and CBC, may follow up your data services developer in one week. You have a large bowel movement today, there is no GI bleeding. Should your symptoms return or worsen, you may present ER or call 911 for help. Follow-Up Care: [facility] - Card[facility] No Smoking: If you smoke, Please STOP! Call for help. Follow-up with: Aissatou Roque MD [Provider Admit Priv/Credential] -
--- NOTE | 2018-01-16 11:33 | DISCHARGE SUMMARY ---
Discharge Summary Discharge Date: 01/16/18 Discharging Provider: MÉNDEZ Primary Care Provider: Aissatou Olivas Condition at Discharge: Serious Discharge Disposition: 01 Home, Self Care Discharge Facility Name: home - DIAGNOSES Admission Diagnoses: (1) Lower GI bleed (2) Atrial fibrillation (3) LESLYE (acute kidney injury) (4) Hypertension (5) Depression (6) Hyperlipidemia (7) Chronic pain Discharge Diagnoses with Status of Each Condition: (1) GI bleed resolved. pt had large bowel movement, but no blood. omeprazole is prescribed for pt. (2) Atrial fibrillation continue Coumadin (3) LESLEY (acute kidney injury) resolved as pt's baseline (4) Hypertension stable, continue to be managed by PCP (5) Depression stable (6) Hyperlipidemia stable (7) Chronic pain stable (8) hx of heart Mechanical valve per pt's correctional captain recommend, continue home Coumadin regime and hold Aspirin. - HPI History of Present Illness: refer from Dr. Leon's HPI for pt as the following: Patient is a 72-year-old gentleman with a past medical history significant for atrial fibrillation on Coumadin, hypertension, mitral valve replacement, borderline diabetes, gout, obesity, depression, chronic back pain status post spinal surgery, mild cognitive impairment, coronary disease status post stent in 2014, and chronic CHF who presented to the emergency department with a chief complaint of bloody stools. The patient states that he underwent a colonoscopy 7 days ago. From our records it appears the patient had sessile polyp ranging between 5-9 mm that was found in the descending colon which was removed by polypectomy, he also had a pedunculated polyp measuring 2 cm in the ascending colon which was also removed by polypectomy, he had a sessile polyps ranging between 3-7 mm in the sigmoid colon which was removed by polypectomy and he had multiple sessile polyps ranging between 5 and 9 mm in the rectum which were removed by polypectomy as well. The pathology on the polyps that were sent for biopsy showed no evidence of malignancy. The patient states that for the procedure he stopped his Coumadin a few days before and this was resumed a day after the procedure. He states that he was in his normal state of health after the procedure and was not having any issues to the week. He states that when he got up this morning he felt very dizzy and fell to the floor. He states he did not lose consciousness but after he fell on the floor he states that he had sustained his pajamas with blood that had come from his rectum. He states that after this he got up and went to the toilet and filled the toilet with bloody stools. He states the stools are bloody but the blood is dark. He states that after this large bloody bowel movement he had no further bloody bowel movements through the day. He does state however he was getting extremely dizzy anytime he would stand. He states that his was out shopping and when she called he did not want to worry her so he told her he was fine. When she did return from shopping he told her what had happened and she immediately called 911. On arrival of EMS the patient was found to be hypotensive and had positive orthostatics. The patient was brought into the emergency department. Patient denies any headaches, blurred vision, runny nose, sore throat, nasal congestion, difficulty swallowing, fevers, chills, chest pain, palpitations, shortness of air, orthopnea, PND, increased lower extremity swelling, abdominal pain, nausea, vomiting, diarrhea, constipation, urinary urgency, urinary frequency, dysuria, joint pain, joint swelling, muscle aches, neck stiffness, recent unintentional weight loss, changes in appetite, skin rashes, hair loss, polydipsia, polyuria, night sweats or any focal neurologic deficits. On presentation to the emergency department the patient was afebrile and was mildly hypotensive with a blood pressure of 97/57 but was not tachycardic and not in any respiratory distress. The patient's lab work revealed that the patient had a hemoglobin of 9.8 which had decreased from 11.7 just 2 weeks earlier. The patient's stool guaiac was positive and his INR was 1.7 on presentation. The patient otherwise had a mildly elevated creatinine of 1.6 from a baseline of 1.1-1.3. The patient's AST and alk phos are slightly elevated but this was near his baseline. The patient did not undergo any imaging in the emergency department physician spoke with the general surgeon ammonia worker. The general surgeon recommended that the patient be placed in observation and have serial H&H and be monitored for any further bleeding and that he would see the patient in the morning. - ALLERGIES Allergies/Adverse Reactions: Allergies Allergy/AdvReac Type Severity Reaction Status Date / Time hydrocodone Allergy Intermediate Hives Verified 01/14/18 22:05 cyclobenzaprine Allergy Mild Rash Verified 01/14/18 22:05 [From Flexeril] - MEDICATIONS Home Medications: Ambulatory Orders Medication Instructions Recorded Confirmed Acetaminophen/Diphenhydramine 2 each PO DAILY PM 12/29/17 01/14/18 [Tylenol Pm Ex-Strength Caplet] Atorvastatin Calcium 80 mg PO DAILY 12/29/17 01/14/18 Docusate Sodium 100 mg PO BID 12/29/17 01/14/18 Escitalopram [Lexapro] 10 mg PO DAILY 12/29/17 01/14/18 Famotidine 20 mg PO BID 12/29/17 01/14/18 Furosemide [Lasix] 10 mg PO BID 12/29/17 01/14/18 Metoprolol Succinate 25 mg PO DAILY 12/29/17 01/14/18 Multivit-Min/Folic/Vit K/Lycop 1 each PO DAILY 12/29/17 01/14/18 [Men's Multivitamin Caplet] Potassium Chloride 10 meq PO BID 12/29/17 01/14/18 Ubidecarenone/Vit E Acetate [Co 1 each PO DAILY 12/29/17 01/14/18 Q-10 100 mg Softgel] Warfarin [Coumadin] 0.5 tab PO .QMON-SAT 12/29/17 01/14/18 Warfarin [Coumadin] 2.5 mg PO .QSUNDAY 12/29/17 01/14/18 oxyCODONE [Roxicodone] 5 mg PO TID MDD 15 mg 12/29/17 01/14/18 Colchicine 0.6 mg PO DAILY PRN 01/14/18 01/14/18 Ferrous Gluconate 324 mg PO TID 01/14/18 01/14/18 Metoprolol Succinate 50 mg PO QPM 01/14/18 01/14/18 Omeprazole 40 mg PO DAILY #10 capsule. 01/16/18 - PHYSICAL EXAM AT DISCHARGE General Appearance: positive: No acute distress, Alert. negative: Lethargic Eyes Bilateral: positive: Normal inspection, PERRL, No lid inflammation, Conjunctivae nml ENT: positive: ENT inspection nml, Pharynx nml, No signs of dehydration. negative: Purulent nasal drainage, Pharyngeal erythema, Oral lesions Neck: positive: Nml inspection, Thyroid nml, No JVD, Trachea midline. negative : Thyromegaly, Lymphadenopathy (R), Lymphadenopathy (L), Stiff neck, Swelling/ bruising, Tracheal deviation Respiratory: positive: Chest non-tender, No respiratory distress, Breath sounds nml. negative: Wheezes, Rales, Rhonchi Cardiovascular: positive: Regular rate & rhythm, No gallop, Systolic murmur. negative: Irregularly irregular, Extrasystoles, Tachycardia, Bradycardia, Diastolic murmur Peripheral Pulses: positive: 2+ Abdomen: positive: Non-tender, No organomegaly, Nml bowel sounds, No distention. negative: Tenderness, Guarding, Rebound Back: positive: Nml inspection. negative: CVA tenderness (R), CVA tenderness (L ) Skin: positive: Color nml, No rash, Warm, Dry. negative: Cyanosis, Diaphoresis , Pallor Extremities: positive: Non-tender, Full ROM, Nml appearance. negative: Calf tenderness, Joint swelling, Samira's sign/cords Neurologic/Psychiatric: positive: Oriented x3, Motor nml, Sensation nml, Mood/ affect nml. negative: Sensory loss, Facial droop, Slurred/abnml speech, Depressed mood/affect - LABS Result Diagrams: 01/16/18 05:05 01/16/18 05:05 - FOLLOW UP Follow Up: you may follow up your PCP in 2-3 days and have blood work including PT/INR and CBC, may follow up your correctional captain in one week. You have a large bowel movement today, there is no GI bleeding. Should your symptoms return or worsen, you may present ER or call 911 for help. - TIME SPENT Time Spent in Discharge (Minutes): 50
[2018-01-16 11:49] LABS: BACTERIA,URINE Rare /HPF (None Seen); RBC,URINE 0-5 /HPF (0-5); SQUAMOUS EPITHELIAL CELL,UR NONE SEEN (<= Few)
[2018-01-16 13:06] VITALS: BP 116/73
[2018-01-16] MEDS ORDERED: WARFARIN 2.5 MG TABLET PO SCH (14:00)
[2018-01-16] MEDS ORDERED: METOPROLOL SUCCINATE 50 MG TABLET PO SCH (21:00)
[2018-01-17] MEDS ORDERED: WARFARIN 2.5 MG TABLET PO SCH (14:00)
== END 2018-01-16 14:15 | disposition home or self-care (01) | DRG 378 ==
LOC: EDUNIT# → ED 19:05 → MS2 20:17 → OBSVTOIN 01-14 15:14
PROVIDERS: ADMIT Internal Medicine; ATTEND Nurse Practitioner Gerontology
DX: K92.1 Melena (principal); N17.9 Acute kidney failure, unspecified; D62 Acute posthemorrhagic anemia; I48.2 Chronic atrial fibrillation; I11.0 Hypertensive heart disease with heart failure; I50.9 Heart failure, unspecified; F32.9 Major depressive disorder, single episode, unspecified; G89.29 Other chronic pain; M54.9 Dorsalgia, unspecified; R73.03 Prediabetes; M10.9 Gout, unspecified; E66.9 Obesity, unspecified; Z68.30 Body mass index [BMI] 30.0-30.9, adult; G31.84 Mild cognitive impairment of uncertain or unknown etiology; I25.10 Atherosclerotic heart disease of native coronary artery without angina pectoris; E78.00 Pure hypercholesterolemia, unspecified; Z72.89 Other problems related to lifestyle; Z79.01 Long term (current) use of anticoagulants; Z79.82 Long term (current) use of aspirin; Z79.891 Long term (current) use of opiate analgesic; Z79.899 Other long term (current) drug therapy; Z87.891 Personal history of nicotine dependence; Z86.010 Personal history of colon polyps; Z91.89 Other specified personal risk factors, not elsewhere classified; Z95.5 Presence of coronary angioplasty implant and graft; Z95.2 Presence of prosthetic heart valve
CPT/HCPCS: 36415; 71045; 80053; 81001; 82270; 83690; 85014; 85018; 85025; 85610; 86850; 86900; 86901; 87040; 87086; 96360; 96361; 96372; 96374; 96376; 99284

== ENCOUNTER 2018-02-11 15:46 | Outpatient (CLI) | payer MEDICARE, BC ==
[2018-02-11 18:32] LABS: PT - PROTHROMBIN TIME 82.7 secs (9.9-12.6)
[2018-02-11 18:49] LABS: INR 7.9 (0.8-1.2)
== END 2018-02-11 23:59 | disposition home or self-care (01) ==
LOC: LAB.WCP 15:46
PROVIDERS: ATTEND Family Medicine
DX: Z79.01 Long term (current) use of anticoagulants (principal)
CPT/HCPCS: 36415; 85610

== ENCOUNTER 2018-02-12 11:08 | Outpatient (CLI) | payer MEDICARE, BC ==
[2018-02-12 11:55] LABS: PT - PROTHROMBIN TIME 66.8 secs (9.9-12.6)
[2018-02-12 12:02] LABS: INR 6.3 (0.8-1.2)
== END 2018-02-12 11:09 | disposition home or self-care (01) ==
LOC: LAB 11:08
PROVIDERS: ATTEND Family Medicine
DX: Z79.01 Long term (current) use of anticoagulants (principal)
CPT/HCPCS: 36415; 85610

== ENCOUNTER 2018-02-13 10:50 | Outpatient (CLI) | payer MEDICARE, BC ==
[2018-02-13 11:11] LABS: INR 2.5 (0.8-1.2); PT - PROTHROMBIN TIME 27.1 secs (9.9-12.6)
== END 2018-02-13 10:51 | disposition home or self-care (01) ==
LOC: LAB 10:50
PROVIDERS: ATTEND Family Medicine
DX: Z79.01 Long term (current) use of anticoagulants (principal)
CPT/HCPCS: 36415; 85610

== ENCOUNTER 2018-02-15 15:01 | Outpatient (CLI) | payer MEDICARE, BC ==
[2018-02-15 15:12] LABS: BASOPHILS % (AUTO) 0.6 %; EOSINOPHILS # (AUTO) 0.2 10^3/uL (0.0-0.7); EOSINOPHILS % (AUTO) 3.5 %; HGB - HEMOGLOBIN 11.1 g/dL (14.0-18.0); LYMPHOCYTES # (AUTO) 1.1 10^3/uL (1.5-3.5); LYMPHOCYTES % (AUTO) 17.9 %; MEAN CORPUSCULAR HEMOGLOBIN 28.4 pg (27.0-31.0); MEAN CORPUSCULAR HGB CONC 31.9 g/dL (32.0-36.0); MEAN CORPUSCULAR VOLUME 89.1 fL (80.0-94.0); MEAN PLATELET VOLUME 6.6 fL (7.4-11.4); MONOCYTES # (AUTO) 0.6 10^3/uL (0.0-1.0); NEUTROPHILS # (AUTO) 4.2 10^3/uL (1.5-6.6); PLT - PLATELET COUNT 280 10^3/uL (130-450); RED BLOOD COUNT 3.91 10^6/uL (4.70-6.10); RED CELL DISTRIBUTION WIDTH 17.1 % (12.0-15.0); WHITE BLOOD COUNT 6.2 x10^3/uL (4.8-10.8)
== END 2018-02-15 15:02 | disposition home or self-care (01) ==
LOC: LAB 15:01
PROVIDERS: ATTEND Family Medicine
DX: K92.2 Gastrointestinal hemorrhage, unspecified (principal); D64.9 Anemia, unspecified
CPT/HCPCS: 36415; 85025

== ENCOUNTER 2018-05-07 15:58 | Emergency (ER) | payer MEDICARE, BC ==
[2018-05-07] MEDS ORDERED: oxyCODONE 5 MG TABLET PO STA (17:17)
--- NOTE | 2018-05-07 17:43 | ED Physician Documentation ---
History of Present Illness - Stated complaint Stated Complaint: GLF/LT LEG INJ - Chief complaint Chief Complaint: Ext Problem - Additonal information Additional information: pt to ED for evaluation of LLE pain after a fall per family he fell several days ago pt does not know why he fell - just collapsed no CP palp syncope focal weakness etc family states this is an ongoing problem for him- that he has extensive cardiac dz s/p CABD and valve replacement - that has been extensively evaluated by at least 2 cardiology groups - and that he has lost 30% of his brain volume due to strokes - so weakness dizziness fall are not new and he declines to use a walker - that is not the reason he came in today - he came for the leg injury to be evaluated he declines to use a walker as recommended he has continued severe pain to his LLE and inability to bear weight pt is on coumadin last INR was therapeutic 2.5-3.5 two weeks ago he states he is absolutely certain he did not his his head he has no head or neck pain no focal numbness or weakness he also denies CP palp soa and no abd pain NVD just wants his leg checked out Review of Systems Constitutional: denies: Fever Ears: denies: Drainage/discharge Nose: denies: Epistaxis Cardiac: denies: Chest pain / pressure, Palpitations Respiratory: denies: Dyspnea GI: denies: Abdominal Pain, Nausea, Vomiting, Bloody / black stool Neurologic: reports: Generalized weakness. denies: Focal weakness, Numbness, Seizure, Headache, Head injury, LOC Endocrine: reports: Easy bruising / bleeding Immunocompromised: denies: Immunocompromised PD PAST MEDICAL HISTORY - Past Medical History Past Medical History: Yes Cardiovascular: Congestive heart failure, Hypertension, High cholesterol, Coronary artery disease, Atrial fibrillation, Valve disorder, Other Neuro: Other Endocrine/Autoimmune: Type 2 diabetes GI: Colon polyps Psych: Depression - Past Surgical History Past Surgical History: Yes General: Cholecystectomy, Colonoscopy Cardiovascular: CABG, Valve replacement - Present Medications Home Medications: Ambulatory Orders Medication Instructions Recorded Confirmed Atorvastatin Calcium 80 mg PO DAILY 12/29/17 01/14/18 Docusate Sodium 100 mg PO BID 12/29/17 01/14/18 Escitalopram [Lexapro] 10 mg PO DAILY 12/29/17 01/14/18 Furosemide [Lasix] 10 mg PO BID 12/29/17 01/14/18 Metoprolol Succinate 25 mg PO DAILY 12/29/17 01/14/18 Multivit-Min/Folic/Vit K/Lycop 1 each PO DAILY 12/29/17 01/14/18 [Men's Multivitamin Caplet] Potassium Chloride 10 meq PO BID 12/29/17 01/14/18 Ubidecarenone/Vit E Acetate [Co 1 each PO DAILY 12/29/17 01/14/18 Q-10 100 mg Softgel] Warfarin [Coumadin] 0.5 tab PO .QMON-SAT 12/29/17 01/14/18 Warfarin [Coumadin] 2.5 mg PO .QSUNDAY 12/29/17 01/14/18 oxyCODONE [Roxicodone] 5 mg PO TID MDD 15 mg 12/29/17 01/14/18 Colchicine 0.6 mg PO DAILY PRN 01/14/18 01/14/18 Ferrous Gluconate 324 mg PO TID 01/14/18 01/14/18 Metoprolol Succinate 50 mg PO QPM 01/14/18 01/14/18 Omeprazole 40 mg PO DAILY #10 capsule. 01/16/18 Omeprazole 05/07/18 05/07/18 - Allergies Allergies/Adverse Reactions: Allergies Allergy/AdvReac Type Severity Reaction Status Date / Time hydrocodone Allergy Intermediate Hives Verified 01/14/18 22:05 cyclobenzaprine Allergy Mild Rash Verified 05/07/18 16:05 [From Flexeril] - Social History Does the pt smoke?: No Smoking Status: Never smoker Does the pt drink ETOH?: No Does the pt have substance abuse?: No - Immunizations Immunizations are current?: Yes - POLST Patient has POLST: No POLST Status: Full Code PD ED PE NORMAL - Vitals Vital signs reviewed: Yes - General General: Alert and oriented X 3, Other (alert and can answer but family gives most of the answers) - HEENT HEENT: Atraumatic, PERRL (3) - Neck Neck: No bony TTP - Cardiac Cardiac: RRR - Respiratory Respiratory: No respiratory distress, Clear bilaterally - Abdomen Abdomen: Non tender - Derm Derm: Normal color - Extremities Extremities: Other (valente hips NT and full ROM. LLE - knee TTP meidal jt line, limited ROM 2/2 pain with extension, no patellar quad tendon or patellar tenson TTP, no lateral jt line TTP, no ACL MCL LCL lacity, mild tib fib TTP, ankle diffusley TTP but more so medially, + edema, no laxity appreciated, foot sweoolen meidally > laterally and TTP, slighty warm and either bruised or slightly erythematous medially but no open wounds except a small scab to 5th toe s erythema at that site, no streaking, MSV intact) Results - Vitals Vitals: Vital Signs - 24 hr 05/07/18 05/07/18 16:01 19:37 Temperature 36.5 C 36.7 C Heart Rate 88 84 Respiratory 20 16 Rate Blood Pressure 115/85 H 130/78 O2 Saturation 97 98 Oxygen O2 Source Room air - Labs Labs: Laboratory Tests 05/07/18 05/07/18 17:25 17:38 PT 48.3 H INR 4.5 H* Whole Blood INR 5.2 H* - Rads (name of study) CTH Radiology: See rad report (atrophy, no acute bleed or skull fx) CT CS Radiology: See rad report (degen changes, no acute) LLE Radiology: See rad report (probable non displaced fibular fx on lateral view) foot Radiology: See rad report (mid phalange 2nf toe disloacted medially and superiorly at PIP) Procedures - Splint (location) LLE Splint applied by: Nurse, Tech Type of splint: Fiberglass, Short leg, Posterior Other: Patient tolerated well, No complications, Neurovascular intact. No: Crutches provided (has walker etc at home already) PD MEDICAL DECISION MAKING - ED course ED course: due to high INR and fall checked CTH/CS - neg discussed walking boot vs splint and opts for splint - fibular fx splinted both Dr Mendoza and I attempted to reduce the toe s success - wonder if it might be chronic (not very tender), MSV intact, will splint LLE for fibular fx anyway and refer to ortho - Sepsis Event Vital Signs: Vital Signs - 24 hr 05/07/18 05/07/18 16:01 19:37 Temperature 36.5 C 36.7 C Heart Rate 88 84 Respiratory 20 16 Rate Blood Pressure 115/85 H 130/78 O2 Saturation 97 98 Oxygen O2 Source Room air Departure - Departure Disposition: 01 Home, Self Care Clinical Impression: Frequent falls, Elevated INR Fibula fracture Qualifiers: Encounter type: initial encounter Fibula location: distal Fracture type: closed Fracture morphology: unspecified fracture morphology Laterality: left Qualified Code(s): S82.832A - Other fracture of upper and lower end of left fibula, initial encounter for closed fracture Dislocation of toe of left foot Qualifiers: Encounter type: initial encounter Qualified Code(s): S93.105A - Unspecified dislocation of left toe(s), initial encounter Condition: Good Instructions: Falls Preventing, ED Fx Lower Ext, ED Splint Care Fiberglass, ED Dislocation Toe Follow-Up: [facility] [Provider Group] Aissaotu Roque MD [Primary Care Provider] - Comments: The INR was elevated - the whole blood protime was 5.3 and the confirmatory INR was 4.5 - either way too high So please hold your coumadin today, then take half a dose tomorrow, then see your PMD office for a recheck Wednesday Thankfully the CT of the head and neck did not show any acute injury The xrays showed a non displaced fibula fracture and a dislocated toe. We were not able to reduce the toe - i wonder if this might be a chronic injury that was just noted on xray today - this is not where he hurts. In any case, we splinted the leg and toe and I have referred you to orthopedics. Elevation and oxycodone as needed for the pain Please always use a walker and have assistance with transfers especially now that you are in the splint Discharge Date/Time: 05/07/18 20:19
[2018-05-07 17:50] LABS: PT - PROTHROMBIN TIME 48.3 secs (9.9-12.6)
[2018-05-07 18:02] LABS: INR 4.5 (0.8-1.2)
--- NOTE | 2018-05-07 18:22 | XRAY Report ---
Reason: fall pain Procedure Date: 05/07/2018 Accession Number: [id number] / [id number] Procedure: XR - Foot 3 View LT CPT Code: FULL RESULT: EXAM: LEFT FOOT RADIOGRAPHY EXAM DATE: 05/07/2018 06:03 PM. CLINICAL HISTORY: Foot pain post fall. COMPARISON: None. TECHNIQUE: 3 views. FINDINGS: Bones: No obvious acute fracture seen. Joints: There is dorsal dislocation of the middle phalanx of the second digit at the PIP joint. Moderate osteophytic changes otherwise seen. Soft Tissues: Mild soft tissue swelling noted about the second digit. IMPRESSION: Dorsal dislocation of the middle phalanx of the second digit at the PIP joint without gross fracture. RADIA
--- NOTE | 2018-05-07 18:46 | XRAY Report ---
Reason: fall pain Procedure Date: 05/07/2018 Accession Number: [id number] / [id number] Procedure: XR - Tib/Fib LT CPT Code: FULL RESULT: EXAM: LEFT TIBIA/FIBULA RADIOGRAPHY EXAM DATE: 05/07/2018 06:03 PM. CLINICAL HISTORY: Fall pain. COMPARISON: FOOT 3 VIEW LT 05/07/2018 5:47 PM. TECHNIQUE: 3 views. FINDINGS: Bones: There is linear lucency through the distal fibula on lateral view. No other findings suspicious for possible fracture. Joints: No evidence of dislocation. There is a suprapatellar joint effusion. Soft Tissues: No unexpected soft tissue findings. There are vascular calcifications. IMPRESSION: 1. There is linear lucency through the distal fibula on lateral view. Differential considerations include nondisplaced fracture or prominent nutrient foramen. 2. There is a small suprapatellar joint effusion. RADIA
--- NOTE | 2018-05-07 18:58 | CT Report ---
Reason: fall high INR Procedure Date: 05/07/2018 Accession Number: [id number] / [id number] Procedure: CT - Head W/O CPT Code: FULL RESULT: EXAM: CT HEAD EXAM DATE: 05/07/2018 06:25 PM. CLINICAL HISTORY: Fall high INR. COMPARISON: None. TECHNIQUE: Multiaxial CT images were obtained from the foramen magnum to the vertex. Reformats: Sagittal and coronal. IV contrast: None. In accordance with CT protocol optimization, one or more of the following dose reduction techniques were utilized for this exam: automated exposure control, adjustment of mA and/or KV based on patient size, or use of iterative reconstructive technique. FINDINGS: Parenchyma: No intraparenchymal hemorrhage. No evidence of mass, midline shift, or CT findings of acute infarction. Alejo-white differentiation is distinct. Diffuse chronic microangiopathic white matter changes are evident. Extraaxial Spaces: Normal for age. No subdural or epidural collections identified. Ventricles: The ventricles and cortical sulci are enlarged, consistent with age-related tissue loss. Sinuses and orbits: Imaged paranasal sinuses, orbits, and mastoids show no significant abnormality. Bones: No evidence of fracture or calvarial defect. Other: Evidence of facial soft tissue swelling or bruising, particularly the medial right periorbital region. IMPRESSION: 1. Generalized age-related cortical atrophic changes without evidence of intracranial hemorrhage or other acute intracranial abnormality. 2. Evidence of facial soft tissue edema/bruising. RADIA
--- NOTE | 2018-05-07 19:05 | CT Report ---
Reason: fall distracting injury Procedure Date: 05/07/2018 Accession Number: [id number] / [id number] Procedure: CT - Cervical Spine W/O CPT Code: FULL RESULT: EXAM: CT CERVICAL SPINE WITHOUT CONTRAST DATE: 05/07/2018 06:25 PM. HISTORY: Fall distracting injury. COMPARISONS: None. TECHNIQUE: Thin-section axial images were acquired of the cervical spine without contrast. Post-processing: Coronal and sagittal reformats. Other: None. In accordance with CT protocol optimization, one or more of the following dose reduction techniques were utilized for this exam: automated exposure control, adjustment of mA and/or KV based on patient size, or use of iterative reconstructive technique. FINDINGS: Alignment: No scoliosis or spondylolisthesis. Bones: No fracture or bone lesion. Interspace Levels/Facets: Diffuse degenerative disk disease with severe disk space narrowing at C3-C4 through T1-T2. Multilevel vertebral body spurring, greatest at C3-C4 through C5-C6. Degenerative/hypertrophic facet disease, greatest bilaterally at C2-C3 with left, and possibly minimally right, facet fusion. Degenerative spurring results in mild to moderate multilevel bony neural foraminal narrowing, primarily on the left at C4-C5 bilaterally as C6-C7 and C7-T1. No high-grade bony canal stenosis. Musculature: Normal. No fatty atrophy. Other: No prevertebral soft tissue swelling. Extensive bilateral carotid calcifications. The lung apices are clear. IMPRESSION: 1. No fracture or acute abnormality. 2. Substantial degenerative disease, as detailed above. RADIA
[2018-05-07 19:38] VITALS: BP 130/78
== END 2018-05-07 20:19 | disposition home or self-care (01) ==
LOC: ED 15:58
DX: S82.832A Other fracture of upper and lower end of left fibula, initial encounter for closed fracture (principal); S93.105A Unspecified dislocation of left toe(s), initial encounter; R79.1 Abnormal coagulation profile; I10 Essential (primary) hypertension; I48.91 Unspecified atrial fibrillation; E11.9 Type 2 diabetes mellitus without complications; Z79.01 Long term (current) use of anticoagulants; W19.XXXA Unspecified fall, initial encounter; Z91.81 History of falling
CPT/HCPCS: 29515; 36415; 70450; 72125; 73590; 73630; 85610; 99283; 99284; A9270

== ENCOUNTER 2018-07-11 08:00 | Outpatient (CLI) | payer MEDICARE, BC ==
[2018-07-11 18:36] LABS: BASOPHILS % (AUTO) 0.6 %; EOSINOPHILS # (AUTO) 0.3 10^3/uL (0.0-0.7); EOSINOPHILS % (AUTO) 4.1 %; HGB - HEMOGLOBIN 11.9 g/dL (14.0-18.0); LYMPHOCYTES % (AUTO) 14.5 %; MEAN CORPUSCULAR HEMOGLOBIN 27.8 pg (27.0-31.0); MEAN CORPUSCULAR HGB CONC 32.1 g/dL (32.0-36.0); MEAN CORPUSCULAR VOLUME 86.6 fL (80.0-94.0); MEAN PLATELET VOLUME 7.2 fL (7.4-11.4); MONOCYTES # (AUTO) 0.5 10^3/uL (0.0-1.0); MONOCYTES % (AUTO) 7.4 %; NEUTROPHILS % (AUTO) 73.4 %; PLT - PLATELET COUNT 313 10^3/uL (130-450); RED BLOOD COUNT 4.28 10^6/uL (4.70-6.10); RED CELL DISTRIBUTION WIDTH 17.6 % (12.0-15.0); WHITE BLOOD COUNT 6.8 x10^3/uL (4.8-10.8)
[2018-07-11 19:26] LABS: % IRON SATURATION 14 % (20-50); ALBUMIN 3.5 g/dL (3.2-5.5); ALBUMIN/GLOBULIN RATIO 0.8 (1.0-2.2); ALKALINE PHOSPHATASE 243 IU/L (42-121); ALT ALANINE AMINOTRANSFERASE 24 IU/L (10-60); AST ASPARTATE AMINOTRANSFERASE 29 IU/L (10-42); BUN - BLOOD UREA NITROGEN 17 mg/dL (6-20); CALCIUM 8.6 mg/dL (8.5-10.3); CARBON DIOXIDE - CO2 29 mmol/L (21-32); CHLORIDE 101 mmol/L (101-111); CHOL/HDL RATIO 2.1 (<5.0); CHOLESTEROL 122 mg/dL; CREATININE 1.1 mg/dL (0.6-1.2); GFR - MDRD 66 (>89); GLUCOSE 97 mg/dL (70-100); HDL CHOLESTEROL 59 mg/dL; IRON 37 ug/dL (45-182); LDL CHOLESTEROL,CALCULATED 49 mg/dL; LDL/HDL RATIO 0.8 (<3.6); SODIUM 137 mmol/L (135-145); TOTAL IRON BINDING CAPACITY 273 ug/dL (250-450); TOTAL PROTEIN 7.9 g/dL (6.7-8.2); TRANSFERRIN 195 mg/dL (180-329); VLDL CHOLESTEROL 14 mg/dL
[2018-07-11 19:27] LABS: HB2 TOTAL 12.6 g/dL; HEMOGLOBIN A1C 0.5 g/dL; HEMOGLOBIN A1C % 5.8 % (4.6-6.2)
[2018-07-11 19:32] LABS: FERRITIN 227.8 ng/mL (23.9-336.2)
[2018-07-11 19:38] LABS: FOLATE 21.29 ng/mL (5.90 - >24.8)
== END 2018-07-11 23:59 | disposition home or self-care (01) ==
LOC: LAB.WCP 08:00
PROVIDERS: ATTEND Family Medicine
DX: I10 Essential (primary) hypertension (principal); E88.9 Metabolic disorder, unspecified; D64.9 Anemia, unspecified; R73.01 Impaired fasting glucose
CPT/HCPCS: 36415; 80053; 80061; 82607; 82728; 82746; 83036; 83540; 83721; 84466; 85025

== ENCOUNTER 2018-09-15 08:00 | Outpatient (CLI) | payer MEDICARE, BC ==
[2018-09-15 18:59] LABS: ALBUMIN 3.2 g/dL (3.2-5.5); ALBUMIN/GLOBULIN RATIO 0.8 (1.0-2.2); BILIRUBIN,TOTAL 0.7 mg/dL (0.2-1.0); CALCIUM 8.8 mg/dL (8.5-10.3); CREATININE 1.1 mg/dL (0.6-1.2); TOTAL PROTEIN 7.4 g/dL (6.7-8.2)
== END 2018-09-15 23:59 | disposition home or self-care (01) ==
LOC: LAB.WCP 08:00
PROVIDERS: ATTEND Family Medicine
DX: I10 Essential (primary) hypertension (principal)
CPT/HCPCS: 36415; 80053

== ENCOUNTER 2018-10-21 08:00 | Outpatient (CLI) | payer MEDICARE, BC | END 2018-10-21 23:59 | disposition home or self-care (01) | LOC: LAB.WCP 08:00 | PROVIDERS: ATTEND Family Medicine | DX: I48.91 Unspecified atrial fibrillation (principal); Z79.01 Long term (current) use of anticoagulants; Z95.2 Presence of prosthetic heart valve ==

== ENCOUNTER 2018-11-07 08:00 | Outpatient (CLI) | payer MEDICARE, BC | END 2018-11-07 23:59 | disposition home or self-care (01) | LOC: LAB.WCP 08:00 | PROVIDERS: ATTEND Family Medicine | DX: I48.91 Unspecified atrial fibrillation (principal); Z79.01 Long term (current) use of anticoagulants ==

== ENCOUNTER 2018-11-08 08:00 | Outpatient (CLI) | payer MEDICARE, BC ==
[2018-11-08 19:26] LABS: BASOPHILS % (AUTO) 0.6 %; EOSINOPHILS # (AUTO) 0.4 10^3/uL (0.0-0.7); EOSINOPHILS % (AUTO) 5.4 %; HGB - HEMOGLOBIN 11.5 g/dL (14.0-18.0); LYMPHOCYTES # (AUTO) 0.9 10^3/uL (1.5-3.5); LYMPHOCYTES % (AUTO) 13.7 %; MEAN CORPUSCULAR HEMOGLOBIN 27.7 pg (27.0-31.0); MEAN CORPUSCULAR HGB CONC 32.5 g/dL (32.0-36.0); MEAN CORPUSCULAR VOLUME 85.4 fL (80.0-94.0); MEAN PLATELET VOLUME 6.9 fL (7.4-11.4); MONOCYTES # (AUTO) 0.7 10^3/uL (0.0-1.0); MONOCYTES % (AUTO) 10.3 %; NEUTROPHILS # (AUTO) 4.7 10^3/uL (1.5-6.6); PLT - PLATELET COUNT 301 10^3/uL (130-450); RED BLOOD COUNT 4.13 10^6/uL (4.70-6.10); RED CELL DISTRIBUTION WIDTH 17.4 % (12.0-15.0); WHITE BLOOD COUNT 6.8 x10^3/uL (4.8-10.8)
[2018-11-08 19:28] LABS: ALBUMIN 3.5 g/dL (3.2-5.5); ALBUMIN/GLOBULIN RATIO 0.9 (1.0-2.2); BILIRUBIN,TOTAL 0.9 mg/dL (0.2-1.0); CALCIUM 8.4 mg/dL (8.5-10.3); CREATININE 1.3 mg/dL (0.6-1.2); TOTAL PROTEIN 7.5 g/dL (6.7-8.2)
[2018-11-08 20:19] LABS: HEMOGLOBIN A1C 0.52 g/dL; HEMOGLOBIN A1C % 6.1 % (4.6-6.2)
== END 2018-11-08 23:59 | disposition home or self-care (01) ==
LOC: LAB.WCP 08:00
PROVIDERS: ATTEND Family Medicine
DX: R94.4 Abnormal results of kidney function studies (principal); R73.01 Impaired fasting glucose; I10 Essential (primary) hypertension; R43.1 Parosmia; F32.9 Major depressive disorder, single episode, unspecified
CPT/HCPCS: 36415; 80053; 82607; 82746; 83036; 84443; 85025

== ENCOUNTER 2019-03-31 08:00 | Outpatient (CLI) | payer MEDICARE, BC | END 2019-03-31 23:59 | disposition home or self-care (01) | LOC: LAB.WCP 08:00 | PROVIDERS: ATTEND Family Medicine | DX: I48.91 Unspecified atrial fibrillation (principal); Z79.01 Long term (current) use of anticoagulants; Z95.2 Presence of prosthetic heart valve ==

== ENCOUNTER 2019-04-07 08:00 | Outpatient (CLI) | payer MEDICARE, BC | END 2019-04-07 23:59 | disposition home or self-care (01) | LOC: LAB.WCP 08:00 | PROVIDERS: ATTEND Family Medicine | DX: I48.91 Unspecified atrial fibrillation (principal); Z79.01 Long term (current) use of anticoagulants; Z95.2 Presence of prosthetic heart valve ==

== ENCOUNTER 2019-04-21 08:00 | Outpatient (CLI) | payer MEDICARE, BC | END 2019-04-21 23:59 | disposition home or self-care (01) | LOC: LAB.WCP 08:00 | PROVIDERS: ATTEND Physician Assistant | DX: I48.91 Unspecified atrial fibrillation (principal); Z95.2 Presence of prosthetic heart valve; Z79.01 Long term (current) use of anticoagulants ==

== ENCOUNTER 2019-04-24 08:00 | Outpatient (CLI) | payer MEDICARE, BC | END 2019-04-24 23:59 | disposition home or self-care (01) | LOC: LAB.WCP 08:00 | PROVIDERS: ATTEND Family Medicine | DX: I48.91 Unspecified atrial fibrillation (principal); Z95.2 Presence of prosthetic heart valve; Z79.01 Long term (current) use of anticoagulants ==

== ENCOUNTER 2019-06-28 08:00 | Outpatient (CLI) | payer MEDICARE, BC | END 2019-06-28 23:59 | disposition home or self-care (01) | LOC: LAB.WCP 08:00 | PROVIDERS: ATTEND Family Medicine | DX: Z79.01 Long term (current) use of anticoagulants (principal); Z95.2 Presence of prosthetic heart valve; I48.91 Unspecified atrial fibrillation ==

== ENCOUNTER 2019-07-05 08:00 | Outpatient (CLI) | payer MEDICARE, BC | END 2019-07-05 23:59 | disposition home or self-care (01) | LOC: LAB.WCP 08:00 | PROVIDERS: ATTEND Family Medicine | DX: Z95.2 Presence of prosthetic heart valve (principal); I48.91 Unspecified atrial fibrillation; Z79.01 Long term (current) use of anticoagulants ==

== ENCOUNTER 2019-07-19 08:00 | Outpatient (CLI) | payer MEDICARE, BC | END 2019-07-19 23:59 | disposition home or self-care (01) | LOC: LAB.WCP 08:00 | PROVIDERS: ATTEND Family Medicine | DX: I48.91 Unspecified atrial fibrillation (principal); Z79.01 Long term (current) use of anticoagulants ==

== ENCOUNTER 2019-08-02 08:00 | Outpatient (CLI) | payer MEDICARE, BC | END 2019-08-02 23:59 | disposition home or self-care (01) | LOC: LAB.WCP 08:00 | PROVIDERS: ATTEND Family Medicine | DX: Z79.01 Long term (current) use of anticoagulants (principal); I48.91 Unspecified atrial fibrillation; Z95.2 Presence of prosthetic heart valve ==

== ENCOUNTER 2019-08-23 08:00 | Outpatient (CLI) | payer MEDICARE, BC | END 2019-08-23 23:59 | disposition home or self-care (01) | LOC: LAB.WCP 08:00 | PROVIDERS: ATTEND Family Medicine | DX: Z79.01 Long term (current) use of anticoagulants (principal); I48.91 Unspecified atrial fibrillation; Z95.2 Presence of prosthetic heart valve ==

== ENCOUNTER 2019-08-25 08:00 | Outpatient (CLI) | payer MEDICARE, BC | END 2019-08-25 23:59 | disposition home or self-care (01) | LOC: LAB.WCP 08:00 | PROVIDERS: ATTEND Family Medicine | DX: I48.91 Unspecified atrial fibrillation (principal); Z95.2 Presence of prosthetic heart valve; Z79.01 Long term (current) use of anticoagulants ==

== ENCOUNTER 2019-09-01 08:00 | Outpatient (CLI) | payer MEDICARE, BC | END 2019-09-01 23:59 | disposition home or self-care (01) | LOC: LAB.WCP 08:00 | PROVIDERS: ATTEND Family Medicine | DX: Z79.01 Long term (current) use of anticoagulants (principal); I48.91 Unspecified atrial fibrillation; Z95.2 Presence of prosthetic heart valve ==

== ENCOUNTER 2019-09-15 08:00 | Outpatient (CLI) | payer MEDICARE, BC | END 2019-09-15 23:59 | disposition home or self-care (01) | LOC: LAB.WCP 08:00 | PROVIDERS: ATTEND Family Medicine | DX: Z79.01 Long term (current) use of anticoagulants (principal); I48.91 Unspecified atrial fibrillation ==

== ENCOUNTER 2019-09-28 08:00 | Outpatient (CLI) | payer MEDICARE, BC | END 2019-09-28 23:59 | disposition home or self-care (01) | LOC: LAB.WCP 08:00 | PROVIDERS: ATTEND Family Medicine | DX: Z79.01 Long term (current) use of anticoagulants (principal); I48.91 Unspecified atrial fibrillation ==

== ENCOUNTER 2019-10-09 08:00 | Outpatient (CLI) | payer MEDICARE, BC | END 2019-10-09 23:59 | disposition home or self-care (01) | LOC: LAB.WCP 08:00 | PROVIDERS: ATTEND Family Medicine | DX: I48.91 Unspecified atrial fibrillation (principal); Z95.2 Presence of prosthetic heart valve; Z79.01 Long term (current) use of anticoagulants ==

== ENCOUNTER 2019-10-11 11:22 | Outpatient (CLI) | payer MEDICARE, BC ==
--- NOTE | 2019-10-16 13:23 | DEXA Report ---
Reason: BONE DISORDER Procedure Date: 10/11/2019 Accession Number: [id number] / [id number] Procedure: DEX - Dexa Spine and/or Hip CPT Code: Final Report FULL RESULT: EXAM: Dexa Spine and/or Hip DATE: 10/11/2019 11:58 AM CLINICAL HISTORY: BONE DISORDER TECHNIQUE: Dual energy x-ray absorptiometry (DXA) was performed on a [employer] System. Regions measured are the AP Spine, femoral neck, and if needed forearm. COMPARISON: None. In accordance with the International Society for Clinical Densitometry (ISCD) guidelines, data from previous exams may be reanalyzed using current recommendations and techniques. This is done to allow a more accurate basis for comparison with the current study. FINDINGS: The data for the lumbar spine is as follows: BMD (g/cm/cm) T-SCORE Z-SCORE REGION L1 1.366 1.7 1.6 L2 1.276 0.3 0.2 L3 1.372 1.1 1.0 L4 1.421 1.5 1.4 TOTAL 1.362 1.2 1.0 NOTE: All evaluable vertebrae are used for classification The data for the hip is as follows: BMD (g/cm/cm) T-SCORE Z-SCORE REGION Neck 0.853 -1.7 -0.8 TOTAL 0.939 -1.1 -0.7 NOTE: The femoral neck or total proximal femur, whichever is lowest, is used for classification. IMPRESSION: THE WHO CLASSIFICATION BASED ON THE INTERNATIONAL REFERENCE STANDARD IS OSTEOPENIA. THE FRACTURE RISK IS INCREASED. RECOMMENDATION: Patients with diagnosis of osteoporosis or osteopenia should have regular bone mineral density assessment. For those eligible for Medicare, routine testing is allowed once every 2 years. Testing frequency can be increased for patients who have rapidly progressing disease or for those who are receiving medical therapy to restore bone mass. COMMENT: World Health Organization (WHO) definitions for osteoporosis and osteopenia: NORMAL BMD: T-score at -1.0 or higher, fracture risk is low OSTEOPENIA BMD: T-score between -1.0 and -2.5, fracture risk is increased. OSTEOPOROSIS BMD: T-score at -2.5 or lower, fracture risk is high. National Osteoporosis Foundation recommends: 1. Obtain adequate dietary calcium (at least 1200 mg per day) and vitamin D (400-800 international units per day). 2. Participate, as appropriate, in regular weightbearing and muscle-strengthening exercise. 3. Avoid tobacco use and reduce alcohol and caffeine intake. 4. For more detailed information see the website at www.NOF.org.
== END 2019-10-11 11:23 | disposition home or self-care (01) ==
LOC: DI 11:22
PROVIDERS: ATTEND Family Medicine
DX: M85.88 Other specified disorders of bone density and structure, other site (principal)
CPT/HCPCS: 77080

== ENCOUNTER 2019-11-16 08:00 | Outpatient (CLI) | payer MEDICARE, BC | END 2019-11-16 23:59 | disposition home or self-care (01) | LOC: LAB.WCP 08:00 | PROVIDERS: ATTEND Family Medicine | DX: I48.91 Unspecified atrial fibrillation (principal); Z79.01 Long term (current) use of anticoagulants ==

== ENCOUNTER 2019-12-07 08:00 | Outpatient (CLI) | payer MEDICARE, BC ==
--- NOTE | 2019-12-08 09:28 | XRAY Report ---
Reason: RIGHT CLAVICLE PAIN Procedure Date: 12/07/2019 Accession Number: [id number] / [id number] Procedure: WCP - Clavicle RT CPT Code: Final Report FULL RESULT: EXAM: RIGHT CLAVICLE RADIOGRAPHY EXAM DATE: 12/07/2019 02:13 PM. CLINICAL HISTORY: Right clavicle pain. COMPARISON: CHEST 2 VIEW PA/LAT 09/02/2018 3:03 PM. TECHNIQUE: 2 views. FINDINGS: Bones: There is a multipart fracture of the distal diaphysis of the right clavicle, with caudal displacement of the major distal fracture fragment. Stable appearance of the right AC articulation, with osteophytic spurring. Imaged portion of the right lung apex appears clear. Previous median sternotomy. IMPRESSION: Fracture of the distal diaphysis of the right clavicle. RADIA
== END 2019-12-07 23:59 | disposition home or self-care (01) ==
LOC: DI.WCP 08:00
PROVIDERS: ATTEND Family Medicine
DX: S42.031A Displaced fracture of lateral end of right clavicle, initial encounter for closed fracture (principal); Z95.2 Presence of prosthetic heart valve; I48.91 Unspecified atrial fibrillation; Z79.01 Long term (current) use of anticoagulants

== ENCOUNTER 2019-12-27 16:00 | Outpatient (CLI) | payer MEDICARE, BC ==
[2019-12-27 16:19] LABS: HGB - HEMOGLOBIN 11.1 g/dL (14.0-18.0); MEAN CORPUSCULAR HEMOGLOBIN 28.1 pg (27.0-31.0); MEAN CORPUSCULAR HGB CONC 31.2 g/dL (32.0-36.0); MEAN CORPUSCULAR VOLUME 90.1 fL (80.0-94.0); MEAN PLATELET VOLUME 8.4 fL (7.4-11.4); RED BLOOD COUNT 3.95 10^6/uL (4.70-6.10); RED CELL DISTRIBUTION WIDTH 16.4 % (12.0-15.0); WHITE BLOOD COUNT 6.1 x10^3/uL (4.8-10.8)
[2019-12-27 16:29] LABS: CALCIUM 8.2 mg/dL (8.5-10.3); CREATININE 1.3 mg/dL (0.6-1.2)
--- NOTE | 2019-12-28 08:38 | XRAY Report ---
Reason: CHF, CHRONIC Procedure Date: 12/27/2019 Accession Number: [id number] / [id number] Procedure: XR - Chest 2 View X-Ray CPT Code: 17940 Final Report FULL RESULT: EXAM: CHEST RADIOGRAPHY EXAM DATE: 12/27/2019 04:25 PM. CLINICAL HISTORY: CHF, chronic. COMPARISON: CHEST 2 VIEW PA/LAT 09/02/2018 3:03 PM. TECHNIQUE: 2 views. FINDINGS: Lungs/Pleura: Persistent consolidation versus mass at the left costophrenic angle, with loculated pleural fluid again extending up lateral left chest wall. Development of mild alveolar and interstitial opacification on the right, with cephalization of the pulmonary vasculature, and minimal paraseptal markings at the right lung base. Prominence of the pulmonary alo. Mild cephalization of pulmonary vasculature on the left. Mediastinum: Heart size upper limits of normal. Previous cardiac surgery and median sternotomy. Other: Surgical clips consistent with previous cholecystectomy. IMPRESSION: Evidence of pulmonary vascular congestion versus minimal pulmonary edema. Persistent rounded consolidation versus masslike density at the left lung base and loculated left pleural fluid. As warranted, this could be further evaluated by CT. RADIA
--- NOTE | 2019-12-28 08:52 | XRAY Report ---
Reason: CHF, CHRONIC, CLAVICLE PAIN Procedure Date: 12/27/2019 Accession Number: [id number] / [id number] Procedure: XR - Clavicle RT CPT Code: Final Report FULL RESULT: EXAM: RIGHT CLAVICLE RADIOGRAPHY EXAM DATE: 12/27/2019 04:25 PM. CLINICAL HISTORY: CHF, chronic, clavicle pain. COMPARISON: CLAVICLE RT 12/07/2019 1:42 PM. TECHNIQUE: 2 views. FINDINGS: Bones: Previous fracture of the distal diaphysis of the right clavicle. Partial bone bridging involving the caudal-most fracture fragments. Nonunion of a more cephalad linear fracture fragment located superiorly. AC articulation space appears stable. Joints: The acromioclavicular and sternoclavicular joints are normal. No subluxation. Soft Tissues: No abnormal subcutaneous radiopaque foreign bodies. IMPRESSION: Previous fractures of the distal diaphysis of the right clavicle, with nonunion of cephalad fracture fragment and incomplete bony bridging of the caudal fracture fragments. RADIA
== END 2019-12-27 16:01 | disposition home or self-care (01) ==
LOC: LAB 16:00 → DI 16:01
PROVIDERS: ATTEND Family Medicine
DX: S42.031K Displaced fracture of lateral end of right clavicle, subsequent encounter for fracture with nonunion (principal); R91.8 Other nonspecific abnormal finding of lung field; I50.9 Heart failure, unspecified
CPT/HCPCS: 36415; 71046; 80048; 83880; 85027

== ENCOUNTER 2020-01-10 08:00 | Outpatient (CLI) | payer MEDICARE, BC | END 2020-01-10 23:59 | disposition home or self-care (01) | LOC: LAB.WCP 08:00 | PROVIDERS: ATTEND Family Medicine | DX: I48.91 Unspecified atrial fibrillation (principal); Z79.01 Long term (current) use of anticoagulants ==

== ENCOUNTER 2020-01-24 08:00 | Outpatient (CLI) | payer MEDICARE, BC | END 2020-01-24 23:59 | disposition home or self-care (01) | LOC: LAB.WCP 08:00 | PROVIDERS: ATTEND Family Medicine | DX: I48.91 Unspecified atrial fibrillation (principal); Z95.2 Presence of prosthetic heart valve; Z79.01 Long term (current) use of anticoagulants ==

== ENCOUNTER 2020-01-27 22:29 | Outpatient (CLI) | payer MEDICARE, BC | END 2020-01-27 22:30 | disposition critical access hospital (66) | LOC: EMS 22:29 | PROVIDERS: ATTEND Surgery | DX: S01.111A Laceration without foreign body of right eyelid and periocular area, initial encounter (principal); R55 Syncope and collapse; W18.39XA Other fall on same level, initial encounter; Y92.000 Kitchen of unspecified non-institutional (private) residence as the place of occurrence of the external cause | CPT/HCPCS: A0425; A0429 ==

== ENCOUNTER 2020-01-27 22:45 | Emergency (ER) | payer MEDICARE, BC ==
--- NOTE | 2020-01-27 22:49 | ED Physician Documentation ---
PD HPI HEAD INJURY - Stated complaint Stated Complaint: GLF, RT EYE LAC, LOC, PNA - History obtained from History obtained from: Patient, EMS - History of Present Illness Mechanism of head injury: Fell Where head injury occurred: Home Timing - onset: How many minutes ago (approximately 20-30 minutes [employer]ENTICE) Pain level now: 4 Location of injury: Right, Front Quality of pain: Pain Associated symptoms: LOC (EMS reports "momentary loss of consciousness but regained consciousness immediately" (based on what patient's spouse had told EMS on scene)). No: AMS, Nausea / vomiting, Neck pain Symptoms improve with: Nothing Symptoms worsen with: Other (no exacerbating factors) Contributing factors: Anticoagulated Recently seen: Not recently seen - Additional information Additional information: while walking in his kitchen tonight, patient became lightheaded and had generalized weakness, followed by syncopal episode. Sustained right eyebrow laceration. Per patient's spouse's description of events, LOC was no more than a few seconds Review of Systems Constitutional: reports: Reviewed and negative Cardiac: reports: Reviewed and negative Respiratory: reports: Reviewed and negative GI: reports: Reviewed and negative Skin: reports: Laceration (s) Musculoskeletal: reports: Back pain Neurologic: reports: Generalized weakness (resolved (pre-syncopal symptom)), Hea dache, Head injury, LOC. denies: Focal weakness, Numbness, Confused, Altered mental status PD PAST MEDICAL HISTORY - Past Medical History Cardiovascular: Congestive heart failure, Hypertension, High cholesterol, Coronary artery disease, Atrial fibrillation, Valve disorder, Other Neuro: Other Endocrine/Autoimmune: Type 2 diabetes GI: Colon polyps Psych: Depression - Past Surgical History Past Surgical History: Yes General: Cholecystectomy, Colonoscopy Cardiovascular: CABG, Valve replacement - Present Medications Home Medications: Ambulatory Orders Medication Instructions Recorded Confirmed Atorvastatin Calcium 80 mg PO DAILY 12/29/17 01/14/18 Docusate Sodium 100 mg PO BID 12/29/17 01/14/18 Escitalopram [Lexapro] 10 mg PO DAILY 12/29/17 01/14/18 Furosemide [Lasix] 10 mg PO BID 12/29/17 01/14/18 Metoprolol Succinate 25 mg PO DAILY 12/29/17 01/14/18 Multivit-Min/Folic/Vit K/Lycop 1 each PO DAILY 12/29/17 01/14/18 [Men's Multivitamin Caplet] Potassium Chloride 10 meq PO BID 12/29/17 01/14/18 Ubidecarenone/Vit E Acet [Co Q-10 1 each PO DAILY 12/29/17 01/14/18 100 mg Softgel] Warfarin [Coumadin] 0.5 tab PO .QMON-SAT 12/29/17 01/14/18 Warfarin [Coumadin] 2.5 mg PO .QSUNDAY 12/29/17 01/14/18 oxyCODONE [Roxicodone] 5 mg PO TID MDD 15 mg 12/29/17 01/14/18 Colchicine 0.6 mg PO DAILY PRN 01/14/18 01/14/18 Ferrous Gluconate 324 mg PO TID 01/14/18 01/14/18 Metoprolol Succinate 50 mg PO QPM 01/14/18 01/14/18 Omeprazole 40 mg PO DAILY #10 capsule. 01/16/18 Omeprazole 05/07/18 05/07/18 - Allergies Allergies/Adverse Reactions: Allergies Allergy/AdvReac Type Severity Reaction Status Date / Time hydrocodone Allergy Intermediate Hives Verified 01/27/20 22:52 cyclobenzaprine Allergy Mild Rash Verified 01/27/20 22:52 [From Flexeril] - Social History Does the pt smoke?: No Smoking Status: Never smoker Does the pt drink ETOH?: No Does the pt have substance abuse?: No - Immunizations Immunizations are current?: Yes - POLST Patient has POLST: No POLST Status: Full Code PD ED PE NORMAL - Vitals Vital signs reviewed: Yes - General General: Alert and oriented X 3, No acute distress, Well developed/nourished - HEENT HEENT: PERRL, EOMI, Moist mucous membranes - Neck Neck: No bony TTP - Cardiac Cardiac: No murmur - Respiratory Respiratory: No respiratory distress, Clear bilaterally - Abdomen Abdomen: Soft, Non tender - Derm Derm: Normal color, Warm and dry - Extremities Extremities: No edema - Neuro Neuro: Alert and oriented X 3, 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, No motor deficit, No sensory deficit, Normal speech Eye Opening: Spontaneous Motor: Obeys Commands Verbal: Oriented GCS Score: 15 PD ED PE EXPANDED - HEENT HEENT Visual: 1 - laceration (2 cm) - Cardiac Cardiac: Irregularly irregular Results - Vitals Vitals: Oxygen O2 Source Room air - EKG (time done) No standard instances Rate: Rate (enter#) (86) Rhythm: Atrial fibrillation [place]: RAD QRS: Normal Ischemia: Normal ST segments - Labs Labs: Laboratory Tests 01/27/20 01/27/20 01/27/20 22:50 22:50 22:50 WBC 5.8 RBC 4.17 L Hgb 11.7 L Hct 37.7 L MCV 90.4 MCH 28.1 MCHC 31.0 L RDW 16.5 H Plt Count 199 MPV 8.7 Neut # (Auto) 3.9 Lymph # (Auto) 1.1 L Swift # (Auto) 0.6 Eos # (Auto) 0.1 Baso # (Auto) 0.0 Absolute Nucleated RBC 0.00 Nucleated RBC % 0.0 PT 31.8 H INR 3.0 H APTT 48.5 H Sodium 138 Potassium 4.3 Chloride 101 Carbon Dioxide 28 Anion Gap 9.0 BUN 25 H Creatinine 1.5 H Estimated GFR (MDRD) 46 L Glucose 119 H Calcium 8.3 L Total Bilirubin 0.9 AST 37 ALT 33 Alkaline Phosphatase 192 H Troponin I High Sens Total Protein 8.0 Albumin 3.9 Globulin 4.1 Albumin/Globulin Ratio 1.0 Lipase 53 H 01/27/20 22:50 WBC RBC Hgb Hct MCV MCH MCHC RDW Plt Count MPV Neut # (Auto) Lymph # (Auto) Swift # (Auto) Eos # (Auto) Baso # (Auto) Absolute Nucleated RBC Nucleated RBC % PT INR APTT Sodium Potassium Chloride Carbon Dioxide Anion Gap BUN Creatinine Estimated GFR (MDRD) Glucose Calcium Total Bilirubin AST ALT Alkaline Phosphatase Troponin I High Sens 8.7 Total Protein Albumin Globulin Albumin/Globulin Ratio Lipase - Rads (name of study) CTH Radiology: Prelim report reviewed, See rad report CT cervical spine Radiology: Prelim report reviewed, See rad report cxr Radiology: Prelim report reviewed, See rad report Procedures - Laceration (location) Face right Length in cm: 2 Wound type: Linear, Into subcut fat, Clean Neurovascular status: Sensory intact, Motor intact, Vascular intact Anesthesia: Lidocaine 1% Wound Preparation: Chlorhexadine Skin layer closure: Nylon, Interrupted, Running Other: Patient tolerated well, No complications, Neurovascular intact, Dressing applied, Tetanus UTD Complexity: Simple PD MEDICAL DECISION MAKING - ED course Complexity details: reviewed old records, reviewed results, re-evaluated patient, considered differential, d/w patient, d/w family Departure - Departure Disposition: 01 Home, Self Care Clinical Impression: Syncope Qualifiers: Syncope type: unspecified Qualified Code(s): R55 - Syncope and collapse Facial laceration Qualifiers: Encounter type: initial encounter Qualified Code(s): S01.81XA - Laceration without foreign body of other part of head, initial encounter Condition: Good Instructions: ED Laceration Facial Sutr Tape, ED Fainting Unkn Cause Follow-Up: Aundrea Spencer DO [Primary Care Provider] - (7-10 days for removal of stitches ) Discharge Date/Time: 01/28/20 01:19
[2020-01-27 22:56] LABS: BASOPHILS % (AUTO) 0.3 %; EOSINOPHILS # (AUTO) 0.1 10^3/uL (0.0-0.7); EOSINOPHILS % (AUTO) 2.4 %; HGB - HEMOGLOBIN 11.7 g/dL (14.0-18.0); LYMPHOCYTES # (AUTO) 1.1 10^3/uL (1.5-3.5); LYMPHOCYTES % (AUTO) 19.6 %; MEAN CORPUSCULAR HEMOGLOBIN 28.1 pg (27.0-31.0); MEAN CORPUSCULAR VOLUME 90.4 fL (80.0-94.0); MEAN PLATELET VOLUME 8.7 fL (7.4-11.4); MONOCYTES # (AUTO) 0.6 10^3/uL (0.0-1.0); MONOCYTES % (AUTO) 10.1 %; NEUTROPHILS # (AUTO) 3.9 10^3/uL (1.5-6.6); NEUTROPHILS % (AUTO) 66.9 %; PLT - PLATELET COUNT 199 10^3/uL (130-450); RED BLOOD COUNT 4.17 10^6/uL (4.70-6.10); RED CELL DISTRIBUTION WIDTH 16.5 % (12.0-15.0); WHITE BLOOD COUNT 5.8 x10^3/uL (4.8-10.8)
[2020-01-27 23:01] LABS: PT - PROTHROMBIN TIME 31.8 secs (9.9-12.6)
[2020-01-27 23:08] LABS: PARTIAL THROMBOPLASTIN TIME 48.5 secs (24.9-33.3)
[2020-01-27 23:10] LABS: ALBUMIN 3.9 g/dL (3.2-5.5); BILIRUBIN,TOTAL 0.9 mg/dL (0.2-1.0); CALCIUM 8.3 mg/dL (8.5-10.3); CREATININE 1.5 mg/dL (0.6-1.2)
[2020-01-28] MEDS ORDERED: LIDOCAINE 1% 2 ML VIAL SUBQ STA (00:16)
[2020-01-28] MEDS ORDERED: BACITRACIN ZINC OINT 1 PACKET TOP STA (00:51)
[2020-01-28] MEDS ORDERED: oxyCODONE 5 MG TABLET PO STA (01:01)
[2020-01-28 01:21] VITALS: BP 123/84
--- NOTE | 2020-01-28 09:11 | XRAY Report ---
PROCEDURE: Chest 1 View X-Ray INDICATIONS: chest pain TECHNIQUE: One view of the chest was acquired. COMPARISON: Prior chest radiographs 12/27/2019, 09/02/2018, 02/15/2019, 02/02/2018, 01/16/2018. Correla tion is also made with the accompanying cervical spine and head CT examinations 01/27/2020. FINDINGS: Surgical changes and devices: None. Lungs and pleura: There is a continued left-sided pleural effusion. Likely atelectasis is seen at the left lung base. Lung volumes are low. No large pneumothorax can be seen. Interstitial prominence is improved compared to the prior examination. Mediastinum: The aorta is prominent and tortuous. The cardiac contours are within normal limits. Bones and chest wall: No suspicious bony lesions. Age-appropriate degenerative changes are seen. Overlying soft tissues appear unremarkable. IMPRESSION: Continued left-sided pleural effusion with associated atelectasis. Postoperative and degenerative changes are seen. Note: No significant discrepancy from the preliminary report. Reviewed by: João Dean MD on 01/28/2020 8:10 AM CLEMENT Approved by: João Dean MD on 01/28/2020 8:10 AM AKBILLY Station ID: [id number]
--- NOTE | 2020-01-28 09:19 | CT Report ---
PROCEDURE: HEAD WO INDICATIONS: fall, head injury, on warfarin TECHNIQUE: Noncontrast 4.5 mm thick angled axial sections acquired from the foramen magnum to the vertex. For r adiation dose reduction, the following was used: automated exposure control, adjustment of mA and/or kV according to patient size. COMPARISON: Prior head CT 05/07/2018. Correlation is also made with the accompanying cervical spine C T 01/27/2020. FINDINGS: Image quality: Excellent. CSF spaces: Basal cisterns are patent. No extra-axial fluid collections. Ventricles are normal in size and shape. Brain: No midline shift. No intracranial masses or hemorrhage. Alejo-white matter interface is norm al. Skull and face: There is a right supraorbital soft tissue hematoma with laceration. No radiopaque fo reign bodies are seen. No underlying calvarial fracture can be seen. Calvarium and visualized facial bones are intact, without suspicious lesions. Sinuses: Visualized sinuses and mastoids are clear. IMPRESSION: Right supraorbital laceration with soft tissue hematoma, without an associated fracture. No intracranial hemorrhage is seen. No significant intracranial abnormality is seen. Note: No significant discrepancy from the preliminary report. Reviewed by: João Dean MD on 01/28/2020 8:18 AM CLEMENT Approved by: João Dean MD on 01/28/2020 8:18 AM CLEMENT Station ID: [id number]
--- NOTE | 2020-01-28 09:25 | CT Report ---
PROCEDURE: CERVICAL SPINE WO INDICATIONS: fall, neck pain TECHNIQUE: Noncontrast 3 mm thick sections acquired from the skull base to the T4 level. Sagittal and coronal r eformats were then constructed. For radiation dose reduction, the following was used: automated exp osure control, adjustment of mA and/or kV according to patient size. COMPARISON: 05/07/2018. Correlation is also made with the accompanying head CT 01/27/2020. FINDINGS: Image quality: Excellent. Bones: No fractures or dislocations. Visualized superior ribs are intact. Prominent degenerative changes are seen, with moderate to severe disc space narrowing at C3-C4, C4-C5 , and C6-C7, with at least moderate disc space narrowing at C5-C6. Bridging anterior osteophytes are seen from at least C4-T1. There is reversal of the normal cervical lordosis. There is at least partia l bony bridging seen of the facet joints on the right at C3-C4 and C4-C5 and on the left at C3-C4. C5 -C6. Bridging anterior osteophytes Sternotomy wires are partially seen. Soft tissues: Prevertebral soft tissues are normal in thickness. No paravertebral hematomas. No ap ical pneumothoraces. Relatively prominent atherosclerotic calcification can be seen involving the ca rotid bifurcations and the aortic arch. IMPRESSION: No acute fractures or acute malalignment can be seen. Advanced degenerative changes are seen, with bridging anterior osteophytes and multiple levels of pro minent disc space narrowing. Reversal of the normal cervical lordosis is seen. Note: No significant discrepancy from the preliminary report. Reviewed by: João Dean MD on 01/28/2020 8:23 AM CLEMENT Approved by: João Dean MD on 01/28/2020 8:23 AM CLEMENT Station ID: [id number]
== END 2020-01-28 01:19 | disposition home or self-care (01) ==
LOC: EDUNIT# → ED 22:45
DX: R55 Syncope and collapse (principal); S01.111A Laceration without foreign body of right eyelid and periocular area, initial encounter; W18.30XA Fall on same level, unspecified, initial encounter; Y93.01 Activity, walking, marching and hiking; Y92.000 Kitchen of unspecified non-institutional (private) residence as the place of occurrence of the external cause; I48.91 Unspecified atrial fibrillation; Z79.01 Long term (current) use of anticoagulants; I11.0 Hypertensive heart disease with heart failure; I50.9 Heart failure, unspecified; E11.9 Type 2 diabetes mellitus without complications; M50.31 Other cervical disc degeneration, high cervical region
CPT/HCPCS: 12011; 36415; 70450; 71045; 72125; 80053; 83690; 84484; 85025; 85610; 85730; 93005; 99284; A9270

== ENCOUNTER 2020-02-05 14:06 | Outpatient (CLI) | payer MEDICARE, BC ==
[2020-02-05 14:26] LABS: INR 2.9 (0.8-1.2); PT - PROTHROMBIN TIME 30.9 secs (9.9-12.6)
== END 2020-02-05 14:07 | disposition home or self-care (01) ==
LOC: LAB 14:06
PROVIDERS: ATTEND Internal Medicine Cardiovascular Disease
DX: I48.21 Permanent atrial fibrillation (principal); I25.10 Atherosclerotic heart disease of native coronary artery without angina pectoris; Z79.01 Long term (current) use of anticoagulants; Z51.81 Encounter for therapeutic drug level monitoring; Z95.2 Presence of prosthetic heart valve
CPT/HCPCS: 36415; 85610

== ENCOUNTER 2020-02-09 14:03 | Outpatient (CLI) | payer MEDICARE, BC ==
[2020-02-09 14:35] LABS: INR 2.8 (0.8-1.2); PT - PROTHROMBIN TIME 30.1 secs (9.9-12.6)
== END 2020-02-09 14:04 | disposition home or self-care (01) ==
LOC: LAB 14:03
PROVIDERS: ATTEND Internal Medicine Cardiovascular Disease
DX: I48.21 Permanent atrial fibrillation (principal)
CPT/HCPCS: 36415; 85610

== ENCOUNTER 2020-02-14 14:04 | Outpatient (CLI) | payer MEDICARE, BC ==
[2020-02-14 14:55] LABS: INR 2.1 (0.8-1.2); PT - PROTHROMBIN TIME 22.6 secs (9.9-12.6)
== END 2020-02-14 14:05 | disposition home or self-care (01) ==
LOC: LAB 14:04
PROVIDERS: ATTEND Internal Medicine Cardiovascular Disease
DX: I48.21 Permanent atrial fibrillation (principal)
CPT/HCPCS: 36415; 85610

== ENCOUNTER 2020-02-19 13:17 | Outpatient (CLI) | payer MEDICARE, BC ==
[2020-02-19 14:13] LABS: PT - PROTHROMBIN TIME 31.8 secs (9.9-12.6)
== END 2020-02-19 13:18 | disposition home or self-care (01) ==
LOC: LAB 13:17
PROVIDERS: ATTEND Internal Medicine Cardiovascular Disease
DX: I48.21 Permanent atrial fibrillation (principal)
CPT/HCPCS: 36415; 85610

== ENCOUNTER 2020-02-29 14:36 | Outpatient (CLI) | payer MEDICARE, BC ==
[2020-02-29 14:52] LABS: INR 1.8 (0.8-1.2); PT - PROTHROMBIN TIME 20.1 secs (9.9-12.6)
== END 2020-02-29 14:37 | disposition home or self-care (01) ==
LOC: LAB 14:36
PROVIDERS: ATTEND Internal Medicine Cardiovascular Disease
DX: I48.21 Permanent atrial fibrillation (principal)
CPT/HCPCS: 36415; 85610

== ENCOUNTER 2020-03-07 11:54 | Outpatient (CLI) | payer MEDICARE, BC ==
[2020-03-07 12:11] LABS: INR 2.4 (0.8-1.2); PT - PROTHROMBIN TIME 26.3 secs (9.9-12.6)
== END 2020-03-07 11:55 | disposition home or self-care (01) ==
LOC: LAB 11:54
PROVIDERS: ATTEND Internal Medicine Cardiovascular Disease
DX: I48.21 Permanent atrial fibrillation (principal)
CPT/HCPCS: 36415; 85610

== ENCOUNTER 2020-03-14 12:19 | Outpatient (CLI) | payer MEDICARE, BC ==
[2020-03-14 12:42] LABS: INR 2.7 (0.8-1.2); PT - PROTHROMBIN TIME 29.4 secs (9.9-12.6)
== END 2020-03-14 12:20 | disposition home or self-care (01) ==
LOC: LAB 12:19
PROVIDERS: ATTEND Internal Medicine Cardiovascular Disease
DX: I48.21 Permanent atrial fibrillation (principal)
CPT/HCPCS: 36415; 85610

== ENCOUNTER 2020-03-26 11:13 | Outpatient (CLI) | payer MEDICARE, BC ==
[2020-03-26 11:33] LABS: INR 2.6 (0.8-1.2); PT - PROTHROMBIN TIME 27.8 secs (9.9-12.6)
== END 2020-03-26 11:14 | disposition home or self-care (01) ==
LOC: LAB 11:13
PROVIDERS: ATTEND Internal Medicine Cardiovascular Disease
DX: I48.21 Permanent atrial fibrillation (principal)
CPT/HCPCS: 36415; 85610

== ENCOUNTER 2020-04-09 14:25 | Outpatient (CLI) | payer MEDICARE, BC ==
--- NOTE | 2020-04-09 15:35 | SLEEP CARE CONSULTATION ---
Information from patient questionnaire entered by Kirsty Michael. I have reviewed and concur with the information entered by Kirsty Michael. This document represents the service I personally performed and the decisions made by me, Cecil Wild MD, [facility]. History of Present Illness Service Date and Time: 04/09/2020 1425 Reason for Visit: New patient Chief Complaint: reports: Insomnia, Unrefreshed sleep, Snoring, Excessive daytime sleepiness, Observed pauses in breathing, Fatigue, Frequent awakenings at night Usual bedtime: 2300 Time it takes to fall asleep: VERIES Snores at night: Yes Observed to quit breathing while asleep: Yes Number of times waking at night: 1-2 Reasons for waking at night: reports: Bathroom Toss, Turn, or Twitch while sleeping: Yes Recalls having dreams: Yes Feels refreshed in the morning: No Morning headache: No Sleepy or fatigued during the day: Yes Ever fallen asleep while driving: No Takes day naps: Yes Dreams during day naps: No Prior sleep studies: No Additional HPI information: I had the pleasure of seeing Mr. Calloway today regarding the possibility of him having a sleep disorder. As you know, he is a 74 year old gentleman who complains of insomnia, unrefreshed sleep, loud snore, observed apneas, frequent awakenings, persistent fatigue, and excessive daytime sleepiness. He also has coronary artery disease, congestive heart failure, atrial fibrillation, and pulmonary hypertension. Subjective Initial Dewy Rose Sleepiness Scale score: 12 Past Medical History Past Medical History: reports: Hypertension, Congestive Heart Failure, Coronary Heart Disease, Arrythmia (atrial fibrillation) Social History The patient's occupation is RETIRED. Patient is and lives in [place]. Have you smoked in the past 12 months: No Cigarettes per day (20/pack): 20 Years of smokin Quit date: 1975 Smoking Pack Years: 15.0 Alcohol use: No Caffeine use: No Family History Family history of sleep disordered breathing: No Allergies and Home Medications Drug allergies reviewed: Yes Home medication list reviewed: Yes Review of Systems Cardiovascular: reports: high blood pressure Respiratory: denies: shortness of breath, wheeze, sputum production, chronic cough, other Gastrointestinal: denies: heartburn, difficulty swallowing, nausea, vomitting, diarrhea, abdominal pain, other Urinary: reports: impotence Neurological: reports: disorientation Ear/Nose/Throat: denies: nasal congestion, sinus problems, nose bleeds, dry mouth/throat, hoarseness, injury to nose, tonsillectomy, wisdom teeth removed, other Endocrine: denies: thyroid disease, history of goiter, sluggishness, too hot or cold, excessive thirst, increased appetite, increased urination, unexplained weakness, other Musculoskeletal: reports: back pain Immunologic: reports: sneezing, itching Physical Exam Vital signs obtained and entered by: To minimize the risk of COVID-19 exposure, detailed exam was not performed. Height: 5 ft 10 in Weight: 228 lb Body Mass Index: 32.7 BMI Classification: Obese Impression and Plan IMPRESSION: 1. Obstructive Sleep Apnea-Hypopnea Syndrome, as suggested by history of loud and irregular snoring, observed cessation of breath while asleep, frequent awakenings during the night, unrefreshed sleep, cognitive impairment, and daytime hypersomnolence. Narrow oropharynx and obesity are common predisposing factors for obstructive sleep apnea-hypopnea syndrome. Congestive heart fail ure, on the other hand, can cause central sleep apnea and Tate-Mcguire respiration. Pathophysiology of sleep-disordered breathing was discussed. I recommend proceeding to polysomnography to confirm the diagnosis and to assess severity. If he has significant sleep disordered breathing, a manual CPAP titration study will also be performed to find the optimal treatment pressure. I informed the patient of what the sleep studies involve and after some discussion, he agreed to proceed. Plan: 1. Schedule polysomnography + manual CPAP/BiPAP titration study 2. Avoid long distance driving or when feeling sleepy. 3. Avoid alcohol, sedative and muscle relaxant around bedtime. 4. Attempt to lose weight. 5. Return in 1 to 2 weeks after the study to discuss results and initiate therapy. Visit Type: In Office Time Spent with Patient (minutes): 15 Provider Statement: I spent 100% of the Face to Face Visit with the patient with greater than 50% spent counseling the patient and coordination of care.
== END 2020-04-09 14:26 | disposition home or self-care (01) ==
LOC: SC 14:25
PROVIDERS: ATTEND Internal Medicine Pulmonary Disease
DX: G47.10 Hypersomnia, unspecified (principal); G47.8 Other sleep disorders; G47.50 Parasomnia, unspecified; R06.83 Snoring; R06.81 Apnea, not elsewhere classified; R41.89 Other symptoms and signs involving cognitive functions and awareness; I11.0 Hypertensive heart disease with heart failure; I50.9 Heart failure, unspecified; I25.10 Atherosclerotic heart disease of native coronary artery without angina pectoris; I48.91 Unspecified atrial fibrillation; E66.9 Obesity, unspecified; Z68.32 Body mass index [BMI] 32.0-32.9, adult
CPT/HCPCS: 99203; G0463; 99212

== ENCOUNTER 2020-05-24 12:26 | Outpatient (CLI) | payer MEDICARE, BC ==
[2020-05-24 12:59] LABS: INR 1.9 (0.8-1.2); PT - PROTHROMBIN TIME 20.2 secs (9.9-12.6)
== END 2020-05-24 12:27 | disposition home or self-care (01) ==
LOC: LAB 12:26
PROVIDERS: ATTEND Internal Medicine Cardiovascular Disease
DX: I48.21 Permanent atrial fibrillation (principal)
CPT/HCPCS: 36415; 85610

== ENCOUNTER 2020-05-28 10:03 | Outpatient (CLI) | payer MEDICARE, BC ==
[2020-05-28 10:33] LABS: INR 1.8 (0.8-1.2); PT - PROTHROMBIN TIME 19.3 secs (9.9-12.6)
== END 2020-05-28 10:04 | disposition home or self-care (01) ==
LOC: LAB 10:03
PROVIDERS: ATTEND Internal Medicine Cardiovascular Disease
DX: I48.21 Permanent atrial fibrillation (principal)
CPT/HCPCS: 36415; 85610

== ENCOUNTER 2020-06-03 13:10 | Outpatient (CLI) | payer MEDICARE, BC ==
[2020-06-03 15:18] LABS: INR 3.9 (0.8-1.2); PT - PROTHROMBIN TIME 39.3 secs (9.9-12.6)
== END 2020-06-03 13:11 | disposition home or self-care (01) ==
LOC: LAB 13:10
PROVIDERS: ATTEND Internal Medicine Cardiovascular Disease
DX: I48.21 Permanent atrial fibrillation (principal)
CPT/HCPCS: 36415; 85610

== ENCOUNTER 2020-06-07 13:10 | Outpatient (CLI) | payer MEDICARE, BC ==
[2020-06-07 18:26] LABS: INR 3.1 (0.8-1.2); PT - PROTHROMBIN TIME 32.3 secs (9.9-12.6)
== END 2020-06-07 23:59 | disposition home or self-care (01) ==
LOC: LAB.R 13:10
PROVIDERS: ATTEND Family Medicine
DX: I48.19 Other persistent atrial fibrillation (principal)
CPT/HCPCS: 81001; 81003; 85610; 87086

== ENCOUNTER 2020-06-10 20:34 | Outpatient (CLI) | payer MEDICARE, BC | END 2020-06-10 20:35 | disposition home or self-care (01) | LOC: SC 20:34 | PROVIDERS: ATTEND Internal Medicine Pulmonary Disease | DX: G47.33 Obstructive sleep apnea (adult) (pediatric) (principal); G47.61 Periodic limb movement disorder; E66.9 Obesity, unspecified; Z68.32 Body mass index [BMI] 32.0-32.9, adult; I48.91 Unspecified atrial fibrillation | CPT/HCPCS: 95810 ==

== ENCOUNTER 2020-06-13 15:54 | Outpatient (CLI) | payer MEDICARE, BC | END 2020-06-13 15:55 | disposition EMS.NT | LOC: EMS 15:54 | PROVIDERS: ATTEND Surgery | DX: R47.81 Slurred speech (principal); R53.1 Weakness ==